=== PATIENT | female | born 1960 | race Caucasian/White ===

== ENCOUNTER 2017-12-10 11:35 | Inpatient (IN) | payer MEDICARE, OTHER ==
[2017-12-10] MEDS: SOD CHLORIDE 0.9% 500 ML IV (13:50)
[2017-12-10 14:03] LABS: ADD MAN DIFF? NO
[2017-12-10 14:06] LABS: BASOPHIL # 0.1 10^3/ul (0.0-0.1); EOSINOPHILS # 0.3 10^3/ul (0.0-0.5); EOSINOPHILS % 5.3 % (0.0-7.0); HEMATOCRIT 38.4 % (37.0-47.0); HEMOGLOBIN 12.9 g/dl (12.0-16.0); LYMPHOCYTES # 2.3 10^3/ul (0.8-2.9); LYMPHOCYTES % 37.5 % (15.0-51.0); MEAN CORPUSCULAR HEMOGLOBIN 30.8 pg (29.0-33.0); MEAN CORPUSCULAR HGB CONC 33.6 g/dl (32.0-37.0); MEAN CORPUSCULAR VOLUME 91.6 fl (82.0-101.0); MEAN PLATELET VOLUME 11.2 fl (7.4-10.4); MONOCYTE # 0.7 10^3/ul (0.3-0.9); MONOCYTES % 11.1 % (0.0-11.0); NEUTROPHIL # 2.7 10^3/ul (1.6-7.5); NEUTROPHILS % 44.8 % (39.0-77.0); PLATELET COUNT 438 10^3/UL (140-415); RED BLOOD COUNT 4.19 10^6/ul (4.20-5.40)
[2017-12-10 14:06] LABS: WHITE BLOOD COUNT 6.1 10^3/ul (4.8-10.8)
[2017-12-10 14:34] LABS: INR 0.88; PARTIAL THROMBOPLASTIN TIME 30.6 Sec (25.0-35.0); PT RATIO 0.9
[2017-12-10 15:21] LABS: ALANINE AMINOTRANSFERASE 27 IU/L (13-69); ALBUMIN 3.9 g/dl (3.3-4.9); ALBUMIN/GLOBULIN RATIO 1.11; ALKALINE PHOSPHATASE 129 IU/L (42-121); ANION GAP 14 (8-16); ASPARTATE AMINO TRANSFERASE 20 IU/L (15-46); BILIRUBIN,INDIRECT 0.1 mg/dl (0-1.1); BILIRUBIN,TOTAL 0.1 mg/dl (0.2-1.3); BLOOD UREA NITROGEN 29 mg/dl (7-20); CALCIUM 9.6 mg/dl (8.4-10.2); CARBON DIOXIDE 31 mmol/L (21-31); CHLORIDE 98 mmol/L (97-110); CREATININE 0.62 mg/dl (0.44-1.00); GLUCOSE 51 mg/dl (70-220); POTASSIUM 4.1 mmol/L (3.5-5.1); SODIUM 139 mmol/L (135-144); TOTAL PROTEIN 7.4 g/dl (6.1-8.1)
[2017-12-10] MEDS: CIPROFLOXACIN 400MG/D5W 200 ML IVPB (20:28)
[2017-12-10] MEDS: SOD CHLORIDE 0.9% 1,000 ML IV (20:28)
[2017-12-10] MEDS ORDERED: ONDANSETRON 4 MG INJ IV (20:30)
[2017-12-10] MEDS ORDERED: ACETAMINOPHEN 325 MG TAB PO (20:30)
[2017-12-10] MEDS ORDERED: ACETAMINOPHEN 500 MG TAB PO (23:30)
[2017-12-10] MEDS ORDERED: INSULIN DETEMIR 16 UNIT SC (23:30)
[2017-12-10] MEDS ORDERED: METOCLOPRAMIDE (1 MG/ML) 10 ML CUP GTB (23:30)
[2017-12-10] MEDS ORDERED: ACETAMINOPHEN 325 MG TAB GTB (23:30)
[2017-12-10] MEDS ORDERED: BISACODYL 10 MG SUPP PR (23:30)
[2017-12-10] MEDS ORDERED: NA PHOSPHATE/BIPHOS 66.6 ML ENEMA PR (23:30)
[2017-12-11] MEDS ORDERED: INSULIN DETEMIR [LEVEMIR] 3ML CART SC
[2017-12-11] MEDS: LEVETIRACETAM (100 MG/ML) 5ML CUP GTB ×3 (00:06→22:07)
[2017-12-11 06:38] LABS: ADD MAN DIFF? NO
[2017-12-11 06:41] LABS: WHITE BLOOD COUNT 6.3 10^3/ul (4.8-10.8)
[2017-12-11 06:41] LABS: BASOPHIL # 0.1 10^3/ul (0.0-0.1); BASOPHILS % 1.1 % (0.0-2.0); EOSINOPHILS # 0.7 10^3/ul (0.0-0.5); EOSINOPHILS % 11.2 % (0.0-7.0); HEMATOCRIT 37.7 % (37.0-47.0); HEMOGLOBIN 12.3 g/dl (12.0-16.0); LYMPHOCYTES # 1.9 10^3/ul (0.8-2.9); LYMPHOCYTES % 29.9 % (15.0-51.0); MEAN CORPUSCULAR HEMOGLOBIN 30.5 pg (29.0-33.0); MEAN CORPUSCULAR HGB CONC 32.6 g/dl (32.0-37.0); MEAN CORPUSCULAR VOLUME 93.5 fl (82.0-101.0); MEAN PLATELET VOLUME 10.4 fl (7.4-10.4); MONOCYTE # 0.5 10^3/ul (0.3-0.9); MONOCYTES % 7.2 % (0.0-11.0); NEUTROPHIL # 3.2 10^3/ul (1.6-7.5); NEUTROPHILS % 50.4 % (39.0-77.0); PLATELET COUNT 376 10^3/UL (140-415); RED BLOOD COUNT 4.03 10^6/ul (4.20-5.40); RED CELL DISTRIBUTION WIDTH 15.1 % (11.5-14.5)
[2017-12-11 07:20] LABS: ANION GAP 17 (8-16); BLOOD UREA NITROGEN 18 mg/dl (7-20); CALCIUM 9.6 mg/dl (8.4-10.2); CARBON DIOXIDE 27 mmol/L (21-31); CHLORIDE 101 mmol/L (97-110); CREATININE 0.58 mg/dl (0.44-1.00); GLUCOSE 104 mg/dl (70-220); POTASSIUM 3.9 mmol/L (3.5-5.1); SODIUM 141 mmol/L (135-144)
[2017-12-11] MEDS: INSULIN ASPART [NOVOLOG] 3 ML PEN SC ×4 (08:00→22:06)
[2017-12-11] MEDS: ASPIRIN (EC) 81 MG TAB PO (09:00)
[2017-12-11] MEDS: traMADol 50 MG TAB GTB ×2 (09:00→22:12)
[2017-12-11] MEDS: SOD CHLORIDE 0.45% 1,000 ML IV ×2 (12:52→19:30)
[2017-12-11] MEDS: MAGNESIUM OXIDE 400 MG TAB GTB ×3 (12:53→22:12)
[2017-12-11] MEDS: ZINC SULFATE 220 MG CAP GTB (12:53)
[2017-12-11] MEDS: METOPROLOL 25 MG TAB GTB ×2 (12:55→22:22)
[2017-12-11] MEDS: FERROUS SULFATE 60 MG/ML 5ML CUP GTB ×2 (12:56→22:06)
[2017-12-11] MEDS: MAGNESIUM HYDROXIDE 30ML CUP GTB (12:56)
[2017-12-11] MEDS: ASCORBIC ACID 500 MG TAB GTB ×2 (12:57→22:07)
[2017-12-11] MEDS: MULTIVITAMINS 30 ML CUP GTB (12:57)
[2017-12-11] MEDS: INSULIN DETEMIR [LEVEMIR] 3ML CART SC (18:12)
[2017-12-11] MEDS: DOCUSATE SODIUM 100 MG CAP PO (22:07)
[2017-12-12] MEDS: SOD CHLORIDE 0.45% 1,000 ML IV ×2 (04:24→15:30)
[2017-12-12] MEDS ORDERED: PENDING SANTYL ORDER FOR WOUND CARE XX (05:00)
[2017-12-12] MEDS: INFLUENZA VIRUS VACCINE 0.5 ML SYG IM* (09:00)
[2017-12-12] MEDS: FERROUS SULFATE 60 MG/ML 5ML CUP GTB ×2 (09:11→21:38)
[2017-12-12] MEDS: ZINC SULFATE 220 MG CAP GTB (09:11)
[2017-12-12] MEDS: LEVETIRACETAM (100 MG/ML) 5ML CUP GTB ×2 (09:11→21:39)
[2017-12-12] MEDS: ASCORBIC ACID 500 MG TAB GTB ×2 (09:11→21:39)
[2017-12-12] MEDS: MULTIVITAMINS 30 ML CUP GTB (09:11)
[2017-12-12] MEDS: MAGNESIUM OXIDE 400 MG TAB GTB ×3 (09:11→21:39)
[2017-12-12] MEDS: METOPROLOL 25 MG TAB GTB ×2 (09:12→21:43)
[2017-12-12] MEDS: traMADol 50 MG TAB GTB ×2 (09:14→21:40)
[2017-12-12] MEDS: INSULIN ASPART [NOVOLOG] 3 ML PEN SC ×4 (09:23→21:00)
[2017-12-12] MEDS: INSULIN DETEMIR [LEVEMIR] 3ML CART SC ×2 (09:24→21:55)
[2017-12-12] MEDS: ASPIRIN (EC) 81 MG TAB PO (09:25)
[2017-12-12] MEDS: CEFEPIME 1GM/50 ML (PMX) 50 ML IVPB (12:38)
[2017-12-12] MEDS: ERTAPENEM SODIUM 1 GM in SOD CHLORIDE 0.9% 100 ML IVPB (21:35)
[2017-12-12] MEDS: DOCUSATE SODIUM 100 MG CAP PO (21:39)
[2017-12-12] MEDS: MAGNESIUM HYDROXIDE 30ML CUP GTB (21:40)
[2017-12-13] MEDS: SOD CHLORIDE 0.45% 1,000 ML IV ×2 (04:43→11:30)
[2017-12-13] MEDS: INSULIN ASPART [NOVOLOG] 3 ML PEN SC ×4 (08:15→21:00)
[2017-12-13] MEDS: METOPROLOL 25 MG TAB GTB ×2 (09:00→21:55)
[2017-12-13] MEDS: ASPIRIN (EC) 81 MG TAB PO (09:32)
[2017-12-13] MEDS: traMADol 50 MG TAB GTB ×2 (09:32→21:51)
[2017-12-13] MEDS: ASCORBIC ACID 500 MG TAB GTB ×2 (09:32→21:48)
[2017-12-13] MEDS: FERROUS SULFATE 60 MG/ML 5ML CUP GTB ×2 (09:32→21:47)
[2017-12-13] MEDS: LEVETIRACETAM (100 MG/ML) 5ML CUP GTB ×2 (09:32→21:47)
[2017-12-13] MEDS: MAGNESIUM OXIDE 400 MG TAB GTB ×3 (09:32→21:47)
[2017-12-13] MEDS: ZINC SULFATE 220 MG CAP GTB (09:32)
[2017-12-13] MEDS: MULTIVITAMINS 30 ML CUP GTB (09:38)
[2017-12-13] MEDS: INSULIN DETEMIR [LEVEMIR] 3ML CART SC ×2 (09:42→22:07)
[2017-12-13] MEDS: MAGNESIUM HYDROXIDE 30ML CUP GTB (21:46)
[2017-12-13] MEDS: DOCUSATE SODIUM 100 MG CAP PO (21:47)
[2017-12-13] MEDS: MUPIROCIN 2% 15 GM CR TOP (21:52)
[2017-12-13] MEDS: ERTAPENEM SODIUM 1 GM in SOD CHLORIDE 0.9% 100 ML IVPB (21:52)
[2017-12-14] MEDS: SOD CHLORIDE 0.45% 1,000 ML IV ×2 (00:56→22:14)
[2017-12-14] MEDS: MULTIVITAMINS 30 ML CUP GTB (09:19)
[2017-12-14] MEDS: LEVETIRACETAM (100 MG/ML) 5ML CUP GTB ×2 (09:19→21:59)
[2017-12-14] MEDS: FERROUS SULFATE 60 MG/ML 5ML CUP GTB ×2 (09:19→22:00)
[2017-12-14] MEDS: METOPROLOL 25 MG TAB GTB ×2 (09:20→22:09)
[2017-12-14] MEDS: ZINC SULFATE 220 MG CAP GTB (09:20)
[2017-12-14] MEDS: MAGNESIUM OXIDE 400 MG TAB GTB ×3 (09:21→22:01)
[2017-12-14] MEDS: ASCORBIC ACID 500 MG TAB GTB ×2 (09:21→22:01)
[2017-12-14] MEDS: ASPIRIN (EC) 81 MG TAB PO (09:21)
[2017-12-14] MEDS: MUPIROCIN 2% 15 GM CR TOP ×2 (09:21→22:02)
[2017-12-14] MEDS: INSULIN ASPART [NOVOLOG] 3 ML PEN SC ×4 (09:27→22:13)
[2017-12-14] MEDS: INSULIN DETEMIR [LEVEMIR] 3ML CART SC ×2 (09:27→22:14)
[2017-12-14] MEDS: traMADol 50 MG TAB GTB ×2 (09:44→22:06)
[2017-12-14] MEDS ORDERED: COLLAGENASE 30 GM TUBE TOP (15:30)
[2017-12-14] MEDS: ERTAPENEM SODIUM 1 GM in SOD CHLORIDE 0.9% 100 ML IVPB (22:00)
[2017-12-14] MEDS: MAGNESIUM HYDROXIDE 30ML CUP GTB (22:01)
[2017-12-14] MEDS: DOCUSATE SODIUM 100 MG CAP PO (22:01)
[2017-12-14] MEDS: COLLAGENASE 30 GM TUBE TOP (22:06)
[2017-12-15] MEDS: ZINC SULFATE 220 MG CAP GTB (08:26)
[2017-12-15] MEDS: FERROUS SULFATE 60 MG/ML 5ML CUP GTB ×2 (08:26→21:26)
[2017-12-15] MEDS: ASPIRIN (EC) 81 MG TAB PO (08:27)
[2017-12-15] MEDS: MUPIROCIN 2% 15 GM CR TOP ×2 (08:27→21:27)
[2017-12-15] MEDS: METOPROLOL 25 MG TAB GTB ×2 (08:27→21:30)
[2017-12-15] MEDS: MULTIVITAMINS 30 ML CUP GTB (08:27)
[2017-12-15] MEDS: ASCORBIC ACID 500 MG TAB GTB ×2 (08:27→21:27)
[2017-12-15] MEDS: MAGNESIUM OXIDE 400 MG TAB GTB ×3 (08:27→21:27)
[2017-12-15] MEDS: COLLAGENASE 30 GM TUBE TOP (08:28)
[2017-12-15] MEDS: INSULIN DETEMIR [LEVEMIR] 3ML CART SC ×2 (08:31→21:26)
[2017-12-15] MEDS: INSULIN ASPART [NOVOLOG] 3 ML PEN SC ×4 (08:31→21:00)
[2017-12-15] MEDS: traMADol 50 MG TAB GTB ×2 (08:34→21:31)
[2017-12-15] MEDS: LEVETIRACETAM (100 MG/ML) 5ML CUP GTB ×2 (08:35→21:26)
[2017-12-15 10:53] LABS: ADD MAN DIFF? NO
[2017-12-15 10:59] LABS: BASOPHILS % 0.4 % (0.0-2.0); EOSINOPHILS # 0.5 10^3/ul (0.0-0.5); EOSINOPHILS % 6.4 % (0.0-7.0); HEMATOCRIT 37.5 % (37.0-47.0); HEMOGLOBIN 12.4 g/dl (12.0-16.0); LYMPHOCYTES # 2.1 10^3/ul (0.8-2.9); LYMPHOCYTES % 24.9 % (15.0-51.0); MEAN CORPUSCULAR HEMOGLOBIN 30.6 pg (29.0-33.0); MEAN CORPUSCULAR HGB CONC 33.1 g/dl (32.0-37.0); MEAN CORPUSCULAR VOLUME 92.6 fl (82.0-101.0); MEAN PLATELET VOLUME 10.5 fl (7.4-10.4); MONOCYTE # 0.6 10^3/ul (0.3-0.9); MONOCYTES % 7.3 % (0.0-11.0); NEUTROPHILS % 60.3 % (39.0-77.0); PLATELET COUNT 359 10^3/UL (140-415); RED BLOOD COUNT 4.05 10^6/ul (4.20-5.40); RED CELL DISTRIBUTION WIDTH 14.6 % (11.5-14.5)
[2017-12-15 10:59] LABS: WHITE BLOOD COUNT 8.3 10^3/ul (4.8-10.8)
[2017-12-15 11:18] LABS: ANION GAP 16 (8-16)
[2017-12-15 11:19] LABS: BLOOD UREA NITROGEN 19 mg/dl (7-20); CALCIUM 9.1 mg/dl (8.4-10.2); CARBON DIOXIDE 28 mmol/L (21-31); CHLORIDE 99 mmol/L (97-110); CREATININE 0.56 mg/dl (0.44-1.00); GLUCOSE 144 mg/dl (70-220); POTASSIUM 4.6 mmol/L (3.5-5.1); SODIUM 138 mmol/L (135-144)
[2017-12-15] MEDS: SOD CHLORIDE 0.45% 1,000 ML IV (18:08)
[2017-12-15] MEDS: ERTAPENEM SODIUM 1 GM in SOD CHLORIDE 0.9% 100 ML IVPB (21:25)
[2017-12-15] MEDS: MAGNESIUM HYDROXIDE 30ML CUP GTB (21:26)
[2017-12-15] MEDS: DOCUSATE SODIUM 100 MG CAP PO (21:27)
[2017-12-16 07:07] LABS: ANION GAP 13 (8-16); BLOOD UREA NITROGEN 21 mg/dl (7-20); CALCIUM 9.5 mg/dl (8.4-10.2); CARBON DIOXIDE 30 mmol/L (21-31); CHLORIDE 99 mmol/L (97-110); CREATININE 0.61 mg/dl (0.44-1.00); GLUCOSE 183 mg/dl (70-220); POTASSIUM 4.2 mmol/L (3.5-5.1); SODIUM 138 mmol/L (135-144)
[2017-12-16] MEDS: INSULIN DETEMIR [LEVEMIR] 3ML CART SC ×2 (08:26→21:45)
[2017-12-16] MEDS: INSULIN ASPART [NOVOLOG] 3 ML PEN SC ×4 (08:27→21:00)
[2017-12-16] MEDS: ZINC SULFATE 220 MG CAP GTB (09:19)
[2017-12-16] MEDS: METOPROLOL 25 MG TAB GTB ×2 (09:19→21:43)
[2017-12-16] MEDS: ASCORBIC ACID 500 MG TAB GTB ×2 (09:19→21:42)
[2017-12-16] MEDS: MAGNESIUM OXIDE 400 MG TAB GTB ×3 (09:19→21:42)
[2017-12-16] MEDS: ASPIRIN (EC) 81 MG TAB PO (09:19)
[2017-12-16] MEDS: traMADol 50 MG TAB GTB ×2 (09:19→21:42)
[2017-12-16] MEDS: MULTIVITAMINS 30 ML CUP GTB (09:20)
[2017-12-16] MEDS: FERROUS SULFATE 60 MG/ML 5ML CUP GTB ×2 (09:20→21:40)
[2017-12-16] MEDS: MUPIROCIN 2% 15 GM CR TOP ×2 (09:20→21:43)
[2017-12-16] MEDS: LEVETIRACETAM (100 MG/ML) 5ML CUP GTB ×2 (09:20→21:40)
[2017-12-16] MEDS: COLLAGENASE 30 GM TUBE TOP (09:21)
[2017-12-16] MEDS: SOD CHLORIDE 0.45% 1,000 ML IV (17:50)
[2017-12-16] MEDS: ERTAPENEM SODIUM 1 GM in SOD CHLORIDE 0.9% 100 ML IVPB (19:50)
[2017-12-16] MEDS: MAGNESIUM HYDROXIDE 30ML CUP GTB (21:40)
[2017-12-16] MEDS: DOCUSATE SODIUM 100 MG CAP PO (21:42)
[2017-12-17] MEDS: LEVETIRACETAM (100 MG/ML) 5ML CUP GTB ×2 (09:13→21:37)
[2017-12-17] MEDS: ASPIRIN (EC) 81 MG TAB PO (09:14)
[2017-12-17] MEDS: ASCORBIC ACID 500 MG TAB GTB ×2 (09:14→21:37)
[2017-12-17] MEDS: MAGNESIUM OXIDE 400 MG TAB GTB ×3 (09:14→21:47)
[2017-12-17] MEDS: ZINC SULFATE 220 MG CAP GTB (09:14)
[2017-12-17] MEDS: MULTIVITAMINS 30 ML CUP GTB (09:14)
[2017-12-17] MEDS: FERROUS SULFATE 60 MG/ML 5ML CUP GTB ×2 (09:14→21:37)
[2017-12-17] MEDS: METOPROLOL 25 MG TAB GTB ×2 (09:16→21:38)
[2017-12-17] MEDS: MUPIROCIN 2% 15 GM CR TOP ×2 (09:17→21:39)
[2017-12-17] MEDS: COLLAGENASE 30 GM TUBE TOP (09:17)
[2017-12-17] MEDS: INSULIN ASPART [NOVOLOG] 3 ML PEN SC ×5 (09:24→21:00)
[2017-12-17] MEDS: INSULIN DETEMIR [LEVEMIR] 3ML CART SC ×2 (09:24→21:42)
[2017-12-17] MEDS: traMADol 50 MG TAB GTB ×2 (09:36→21:38)
[2017-12-17] MEDS: SOD CHLORIDE 0.45% 1,000 ML IV ×2 (12:02→15:03)
[2017-12-17] MEDS ORDERED: GLUCOSE GEL 15 GRAM TUBE BUCCAL (16:00)
[2017-12-17] MEDS ORDERED: GLUCOSE GEL 15 GRAM TUBE PO ×2 (16:00)
[2017-12-17] MEDS ORDERED: GLUCAGON 1 MG INJ IM (16:00)
[2017-12-17] MEDS: MAGNESIUM HYDROXIDE 30ML CUP GTB (21:37)
[2017-12-17] MEDS: DOCUSATE SODIUM 100 MG CAP PO (21:37)
[2017-12-17] MEDS: ERTAPENEM SODIUM 1 GM in SOD CHLORIDE 0.9% 100 ML IVPB (21:44)
[2017-12-18] MEDS: SOD CHLORIDE 0.45% 1,000 ML IV (06:13)
[2017-12-18] MEDS: INSULIN ASPART [NOVOLOG] 3 ML PEN SC ×7 (06:13→21:00)
[2017-12-18] MEDS: INSULIN DETEMIR [LEVEMIR] 3ML CART SC ×2 (08:13→21:13)
[2017-12-18] MEDS: METOPROLOL 25 MG TAB GTB ×2 (09:05→20:59)
[2017-12-18] MEDS: LEVETIRACETAM (100 MG/ML) 5ML CUP GTB ×2 (09:06→20:58)
[2017-12-18] MEDS: FERROUS SULFATE 60 MG/ML 5ML CUP GTB ×2 (09:06→20:58)
[2017-12-18] MEDS: MULTIVITAMINS 30 ML CUP GTB (09:07)
[2017-12-18] MEDS: ASPIRIN (EC) 81 MG TAB PO (09:07)
[2017-12-18] MEDS: MAGNESIUM OXIDE 400 MG TAB GTB ×3 (09:07→20:59)
[2017-12-18] MEDS: traMADol 50 MG TAB GTB ×2 (09:07→21:00)
[2017-12-18] MEDS: ASCORBIC ACID 500 MG TAB GTB ×2 (09:07→20:59)
[2017-12-18] MEDS: ZINC SULFATE 220 MG CAP GTB (09:07)
[2017-12-18] MEDS: MUPIROCIN 2% 15 GM CR TOP ×2 (09:08→21:14)
[2017-12-18] MEDS: COLLAGENASE 30 GM TUBE TOP (12:04)
[2017-12-18] MEDS: DEXTROSE 50% 50 ML SYRINGE IV (17:53)
[2017-12-18] MEDS: ERTAPENEM SODIUM 1 GM in SOD CHLORIDE 0.9% 100 ML IVPB (20:58)
[2017-12-18] MEDS: MAGNESIUM HYDROXIDE 30ML CUP GTB (20:58)
[2017-12-18] MEDS: DOCUSATE SODIUM 10 MG/ML (10ML CUP) PO (21:09)
[2017-12-19] MEDS: SOD CHLORIDE 0.45% 1,000 ML IV ×3 (02:49→23:49)
[2017-12-19] MEDS: INSULIN ASPART [NOVOLOG] 3 ML PEN SC ×8 (06:00→23:48)
[2017-12-19] MEDS: INSULIN DETEMIR [LEVEMIR] 3ML CART SC ×2 (06:00→18:06)
[2017-12-19] MEDS: DEXTROSE 50% 50 ML SYRINGE IV (06:33)
[2017-12-19] MEDS: ASCORBIC ACID 500 MG TAB GTB ×2 (09:15→20:17)
[2017-12-19] MEDS: LEVETIRACETAM (100 MG/ML) 5ML CUP GTB ×2 (09:15→20:17)
[2017-12-19] MEDS: traMADol 50 MG TAB GTB ×2 (09:15→20:17)
[2017-12-19] MEDS: MULTIVITAMINS 30 ML CUP GTB (09:15)
[2017-12-19] MEDS: MAGNESIUM OXIDE 400 MG TAB GTB ×3 (09:15→20:17)
[2017-12-19] MEDS: ASPIRIN (EC) 81 MG TAB PO (09:15)
[2017-12-19] MEDS: METOPROLOL 25 MG TAB GTB ×2 (09:15→20:17)
[2017-12-19] MEDS: ZINC SULFATE 220 MG CAP GTB (09:15)
[2017-12-19] MEDS: MUPIROCIN 2% 15 GM CR TOP ×2 (09:16→20:19)
[2017-12-19] MEDS: COLLAGENASE 30 GM TUBE TOP (09:16)
[2017-12-19] MEDS: FERROUS SULFATE 60 MG/ML 5ML CUP GTB ×2 (09:16→20:17)
[2017-12-19] MEDS: ERTAPENEM SODIUM 1 GM in SOD CHLORIDE 0.9% 100 ML IVPB (19:43)
[2017-12-19] MEDS: DOCUSATE SODIUM 10 MG/ML (10ML CUP) PO (20:16)
[2017-12-19] MEDS: MAGNESIUM HYDROXIDE 30ML CUP GTB (20:17)
[2017-12-20] MEDS: SOD CHLORIDE 0.45% 1,000 ML IV ×2 (03:30→21:06)
[2017-12-20] MEDS: INSULIN ASPART [NOVOLOG] 3 ML PEN SC ×6 (05:34→18:22)
[2017-12-20] MEDS: INSULIN DETEMIR [LEVEMIR] 3ML CART SC ×2 (05:39→18:22)
[2017-12-20] MEDS: METOPROLOL 25 MG TAB GTB ×2 (09:00→21:01)
[2017-12-20] MEDS: FERROUS SULFATE 60 MG/ML 5ML CUP GTB ×2 (09:28→21:00)
[2017-12-20] MEDS: MULTIVITAMINS 30 ML CUP GTB (09:28)
[2017-12-20] MEDS: MAGNESIUM OXIDE 400 MG TAB GTB ×3 (09:29→21:01)
[2017-12-20] MEDS: MUPIROCIN 2% 15 GM CR TOP ×2 (09:29→21:02)
[2017-12-20] MEDS: LEVETIRACETAM (100 MG/ML) 5ML CUP GTB ×2 (09:29→21:00)
[2017-12-20] MEDS: ZINC SULFATE 220 MG CAP GTB (09:29)
[2017-12-20] MEDS: ASPIRIN (EC) 81 MG TAB PO (09:29)
[2017-12-20] MEDS: COLLAGENASE 30 GM TUBE TOP (09:29)
[2017-12-20] MEDS: ASCORBIC ACID 500 MG TAB GTB ×2 (09:29→21:01)
[2017-12-20] MEDS: traMADol 50 MG TAB GTB ×2 (09:31→21:01)
[2017-12-20] MEDS: MAGNESIUM HYDROXIDE 30ML CUP GTB (21:00)
[2017-12-20] MEDS: DOCUSATE SODIUM 10 MG/ML (10ML CUP) PO (21:00)
[2017-12-21] MEDS: INSULIN ASPART [NOVOLOG] 3 ML PEN SC ×7 (05:59→18:14)
[2017-12-21] MEDS: INSULIN DETEMIR [LEVEMIR] 3ML CART SC ×2 (06:00→18:14)
[2017-12-21] MEDS: METOPROLOL 25 MG TAB GTB ×2 (09:00→20:42)
[2017-12-21] MEDS: COLLAGENASE 30 GM TUBE TOP (10:17)
[2017-12-21] MEDS: ASCORBIC ACID 500 MG TAB GTB ×2 (10:18→20:42)
[2017-12-21] MEDS: ASPIRIN (EC) 81 MG TAB PO (10:18)
[2017-12-21] MEDS: ZINC SULFATE 220 MG CAP GTB (10:18)
[2017-12-21] MEDS: MULTIVITAMINS 30 ML CUP GTB (10:18)
[2017-12-21] MEDS: FERROUS SULFATE 60 MG/ML 5ML CUP GTB ×2 (10:18→20:42)
[2017-12-21] MEDS: LEVETIRACETAM (100 MG/ML) 5ML CUP GTB ×2 (10:18→20:42)
[2017-12-21] MEDS: MAGNESIUM OXIDE 400 MG TAB GTB ×3 (10:18→20:42)
[2017-12-21] MEDS: traMADol 50 MG TAB GTB ×2 (10:18→20:49)
[2017-12-21] MEDS: MUPIROCIN 2% 15 GM CR TOP ×2 (10:21→20:47)
[2017-12-21] MEDS: SOD CHLORIDE 0.45% 1,000 ML IV (18:21)
[2017-12-21] MEDS: DOCUSATE SODIUM 10 MG/ML (10ML CUP) PO (20:42)
[2017-12-21] MEDS: MAGNESIUM HYDROXIDE 30ML CUP GTB (20:42)
[2017-12-22] MEDS: DEXTROSE 50% 50 ML SYRINGE IV (05:42)
[2017-12-22] MEDS: INSULIN DETEMIR [LEVEMIR] 3ML CART SC (06:00)
[2017-12-22] MEDS: INSULIN ASPART [NOVOLOG] 3 ML PEN SC ×5 (06:00→12:44)
[2017-12-22 06:48] LABS: GLUCOSE 243 mg/dl (70-220)
[2017-12-22] MEDS: COLLAGENASE 30 GM TUBE TOP (09:00)
[2017-12-22] MEDS: MUPIROCIN 2% 15 GM CR TOP (09:00)
[2017-12-22] MEDS: MULTIVITAMINS 30 ML CUP GTB (10:24)
[2017-12-22] MEDS: ASCORBIC ACID 500 MG TAB GTB (10:25)
[2017-12-22] MEDS: METOPROLOL 25 MG TAB GTB (10:25)
[2017-12-22] MEDS: ZINC SULFATE 220 MG CAP GTB (10:25)
[2017-12-22] MEDS: ASPIRIN (EC) 81 MG TAB PO (10:25)
[2017-12-22] MEDS: FERROUS SULFATE 60 MG/ML 5ML CUP GTB (10:27)
[2017-12-22] MEDS: LEVETIRACETAM (100 MG/ML) 5ML CUP GTB (10:27)
[2017-12-22] MEDS: MAGNESIUM OXIDE 400 MG TAB GTB ×2 (10:32→13:34)
[2017-12-22] MEDS: traMADol 50 MG TAB GTB (10:32)
[2017-12-22] MEDS ORDERED: INSULIN DETEMIR [LEVEMIR] 3ML CART SC (18:00)
== END 2017-12-22 15:55 | DRG 689 ==
LOC: E/R 11:35 → MS2 20:19
PROVIDERS: Internal Medicine
DX: N39.0 Urinary tract infection, site not specified (principal); R53.2 Functional quadriplegia; N17.9 Acute kidney failure, unspecified; E11.649 Type 2 diabetes mellitus with hypoglycemia without coma; N93.9 Abnormal uterine and vaginal bleeding, unspecified; R13.10 Dysphagia, unspecified; G93.89 Other specified disorders of brain; Z93.1 Gastrostomy status; B96.20 Unspecified Escherichia coli [E. coli] as the cause of diseases classified elsewhere; F20.9 Schizophrenia, unspecified; F31.9 Bipolar disorder, unspecified; Z22.322 Carrier or suspected carrier of Methicillin resistant Staphylococcus aureus; D56.9 Thalassemia, unspecified; E78.5 Hyperlipidemia, unspecified; G40.909 Epilepsy, unspecified, not intractable, without status epilepticus; I25.10 Atherosclerotic heart disease of native coronary artery without angina pectoris; I10 Essential (primary) hypertension; Z16.12 Extended spectrum beta lactamase (ESBL) resistance; Z96.642 Presence of left artificial hip joint; Z91.19 Patient's noncompliance with other medical treatment and regimen; Z79.4 Long term (current) use of insulin
CPT/HCPCS: 36415; 71045; 74176; 76856; 80048; 80053; 82947; 82962; 85025; 85610; 85730; 86900; 86901; 87081; 87086; 87400; 90686; 96374; 99285-25

== ENCOUNTER 2017-12-30 09:46 | Inpatient (IN) | payer MEDICARE, OTHER ==
[2017-12-30] MEDS ORDERED: ONDANSETRON 4 MG INJ IV (10:00)
[2017-12-30] MEDS ORDERED: ACETAMINOPHEN 325 MG TAB PO (10:00)
[2017-12-30 10:42] LABS: WHITE BLOOD COUNT 6.9 10^3/ul (4.8-10.8)
[2017-12-30 10:42] LABS: ABNORMAL IP MESSAGE 1; HEMATOCRIT 48.4 % (37.0-47.0); HEMOGLOBIN 16.4 g/dl (12.0-16.0); MEAN CORPUSCULAR HEMOGLOBIN 30.5 pg (29.0-33.0); MEAN CORPUSCULAR HGB CONC 33.9 g/dl (32.0-37.0); MEAN CORPUSCULAR VOLUME 90.1 fl (82.0-101.0); MEAN PLATELET VOLUME 11.8 fl (7.4-10.4); PLATELET COUNT 290 10^3/UL (140-415); RED BLOOD COUNT 5.37 10^6/ul (4.20-5.40); RED CELL DISTRIBUTION WIDTH 14.3 % (11.5-14.5)
[2017-12-30 10:45] LABS: ADD MAN DIFF? YES; POSITIVE DIFF @See below
[2017-12-30 11:02] LABS: INR 1.09; PARTIAL THROMBOPLASTIN TIME 30.3 Sec (25.0-35.0); PROTIME 14.3 Sec (11.9-14.9); PT RATIO 1.1
[2017-12-30 11:23] LABS: LACTIC ACID 11.7 mmol/L (0.5-2.0)
[2017-12-30 11:34] LABS: ALANINE AMINOTRANSFERASE 19 IU/L (13-69); ALBUMIN 4.5 g/dl (3.3-4.9); ALBUMIN/GLOBULIN RATIO 1.07; ALKALINE PHOSPHATASE 169 IU/L (42-121); ANION GAP 31 (8-16); ASPARTATE AMINO TRANSFERASE 37 IU/L (15-46); BLOOD UREA NITROGEN 63 mg/dl (7-20); CALCIUM 11.5 mg/dl (8.4-10.2); CARBON DIOXIDE 15 mmol/L (21-31); CHLORIDE 99 mmol/L (97-110); CREATININE 1.65 mg/dl (0.44-1.00); GLUCOSE 305 mg/dl (70-220); POTASSIUM 3.8 mmol/L (3.5-5.1); SODIUM 141 mmol/L (135-144); TOTAL PROTEIN 8.7 g/dl (6.1-8.1)
[2017-12-30 11:45] LABS: TROPONIN-I 0.035 ng/ml (0.00-0.12)
[2017-12-30] MEDS: SOD CHLORIDE 0.9% 1,000 ML IV ×5 (11:56→20:19)
[2017-12-30] MEDS: CEFEPIME 2GM/50 ML (PMX) 50 ML IVPB (11:57)
[2017-12-30] MEDS: VANCOMYCIN 1 GM (PMX) 250 ML IVPB (11:58)
[2017-12-30 13:13] LABS: LACTIC ACID 13.3 mmol/L (0.5-2.0)
[2017-12-30 13:23] LABS: ANISOCYTOSIS 1+ (0-0); BAND NEUTROPHILS #M 2.7 10^3/ul (0.0-0.6); BAND NEUTROPHILS % (M) 40 % (0-4); GIANT THROMBO% (M) 2 % (0-0); LYMPHOCYTES #M 0.4 10^3/ul (0.8-2.9); LYMPHOCYTES % (M) 7 % (15-51); METAMYELOCYTES #M 0.2 10^3/ul (0.0-0.0); METAMYELOCYTES %M 3 % (0-0); MICROCYTOSIS 1+ (0-0); MONOCYTE #M 0.1 10^3/ul (0.3-0.9); MONOCYTES % (M) 2 % (0-11); PLATELET ESTIMATE NORMAL; POLYCHROMASIA 2+ (0-0); ROULEAU 1+ (0-0); SEG NEUT #M 3.5 10^3/ul (1.6-7.5); SEGMENTED NEUTROPHILS (M) % 48 % (39-77)
[2017-12-30 13:52] LABS: LACTIC ACID 11.8 mmol/L (0.5-2.0)
[2017-12-30] MEDS ORDERED: ACETAMINOPHEN 650MG/20.3ML CUP (14:56)
[2017-12-30] MEDS: ACETAMINOPHEN 650 MG SUPP PR (15:28)
[2017-12-30] MEDS: LIDOCAINE 1% (MPF) 5 ML VIAL SC (15:35)
[2017-12-30] MEDS ORDERED: NORepinephrine 8MG/250 ML (PMX 250 ML (16:11)
[2017-12-30 17:03] LABS: UR BACTERIA MANY /HPF (NONE SEEN); UR RBC > 182 /HPF (0-5); UR WBC > 182 /HPF (0-5)
[2017-12-30 17:06] LABS: ADD UMIC YES; UR ASCORBIC ACID 20 mg/dL (NEGATIVE); UR BILIRUBIN (Dip) NEGATIVE (NEGATIVE); UR BLOOD (Dip) 3+ mg/dL (NEGATIVE); UR CLARITY SLIGHTLY CLOUDY (CLEAR); UR COLOR RED (YELLOW); UR GLUCOSE (Dip) 2+ mg/dL (NEGATIVE); UR KETONES (Dip) NEGATIVE (NEGATIVE); UR LEUKOCYTE ESTERASE (Dip) 2+ Leu/ul (NEGATIVE); UR NITRITE (Dip) NEGATIVE (NEGATIVE); UR SPECIFIC GRAVITY (Dip) 1.017 (1.003-1.030); UR TOTAL PROTEIN (Dip) 3+ mg/dl (NEGATIVE); UR UROBILINOGEN (Dip) NEGATIVE (NEGATIVE)
[2017-12-30] MEDS: NORepinephrine 8MG/250 ML (PMX 250 ML IV (18:01)
[2017-12-30] MEDS ORDERED: NORepinephrine 8MG/250 ML (PMX 250 ML IV (20:00)
[2017-12-30] MEDS ORDERED: ASCORBIC ACID 500 MG TAB GTB (21:00)
[2017-12-30] MEDS: FERROUS SULFATE 60 MG/ML 5ML CUP GTB (21:14)
[2017-12-30] MEDS: traMADol 50 MG TAB GTB (21:14)
[2017-12-30] MEDS: ASCORBIC ACID 500 MG TAB GTB (21:14)
[2017-12-30] MEDS: MAGNESIUM OXIDE 400 MG TAB GTB (21:14)
[2017-12-30] MEDS: LEVETIRACETAM (100 MG/ML) 5ML CUP GTB (21:14)
[2017-12-30] MEDS: MEROPENEM 1 GM/50ML(PMX) 50 ML IVPB (21:17)
[2017-12-31] MEDS: ACETAMINOPHEN 650MG/20.3ML CUP GTB (03:41)
[2017-12-31] MEDS: SOD CHLORIDE 0.9% 1,000 ML IV ×3 (04:06→17:30)
[2017-12-31 05:59] LABS: ADD MAN DIFF? NO
[2017-12-31 06:08] LABS: WHITE BLOOD COUNT 13.8 10^3/ul (4.8-10.8)
[2017-12-31 06:08] LABS: ABNORMAL IP MESSAGE 1; BASOPHIL # 0.1 10^3/ul (0.0-0.1); BASOPHILS % 0.7 % (0.0-2.0); EOSINOPHILS # 0.2 10^3/ul (0.0-0.5); EOSINOPHILS % 1.4 % (0.0-7.0); HEMATOCRIT 31.9 % (37.0-47.0); HEMOGLOBIN 10.6 g/dl (12.0-16.0); LYMPHOCYTES # 0.7 10^3/ul (0.8-2.9); LYMPHOCYTES % 4.9 % (15.0-51.0); MEAN CORPUSCULAR HEMOGLOBIN 30.9 pg (29.0-33.0); MEAN CORPUSCULAR HGB CONC 33.2 g/dl (32.0-37.0); MEAN PLATELET VOLUME 11.3 fl (7.4-10.4); MONOCYTE # 0.7 10^3/ul (0.3-0.9); MONOCYTES % 5.1 % (0.0-11.0); NEUTROPHILS % 87.1 % (39.0-77.0); PLATELET COUNT 236 10^3/UL (140-415); RED BLOOD COUNT 3.43 10^6/ul (4.20-5.40); RED CELL DISTRIBUTION WIDTH 14.7 % (11.5-14.5)
[2017-12-31 06:23] LABS: POSITIVE DIFF @See below
[2017-12-31 06:28] LABS: ALANINE AMINOTRANSFERASE 25 IU/L (13-69); ALBUMIN 2.7 g/dl (3.3-4.9); ALBUMIN/GLOBULIN RATIO 0.87; ALKALINE PHOSPHATASE 102 IU/L (42-121); ANION GAP 13 (8-16); ASPARTATE AMINO TRANSFERASE 32 IU/L (15-46); BLOOD UREA NITROGEN 31 mg/dl (7-20); CALCIUM 8.6 mg/dl (8.4-10.2); CARBON DIOXIDE 23 mmol/L (21-31); CHLORIDE 116 mmol/L (97-110); CREATININE 0.72 mg/dl (0.44-1.00); GLUCOSE 71 mg/dl (70-220); POTASSIUM 3.2 mmol/L (3.5-5.1); SODIUM 149 mmol/L (135-144); TOTAL PROTEIN 5.8 g/dl (6.1-8.1)
[2017-12-31] MEDS ORDERED: [UNRECOGNIZED DRUG - REMARK] XX (07:30)
[2017-12-31] MEDS: LEVETIRACETAM (100 MG/ML) 5ML CUP GTB (09:00)
[2017-12-31] MEDS: traMADol 50 MG TAB GTB (09:00)
[2017-12-31] MEDS: MAGNESIUM OXIDE 400 MG TAB GTB ×2 (10:21→13:00)
[2017-12-31] MEDS: FERROUS SULFATE 60 MG/ML 5ML CUP GTB (10:21)
[2017-12-31] MEDS: MEROPENEM 1 GM/50ML(PMX) 50 ML IVPB (10:21)
[2017-12-31] MEDS: MULTIVITAMINS/MINERALS TAB GTB (10:21)
[2017-12-31] MEDS: ZINC SULFATE 220 MG CAP GTB (10:21)
[2017-12-31] MEDS: ASCORBIC ACID 500 MG TAB GTB (10:21)
[2017-12-31] MEDS: POTASSIUM CHLORIDE 20 MEQ POWDER FOR ORAL SOLN GTB (18:12)
[2017-12-31] MEDS: COLLAGENASE 30 GM TUBE TOP (22:00)
[2018-01-01] MEDS: BALSAM PERU/CASTOR OIL 60 GM TUBE TOP ×4 (00:55→21:24)
[2018-01-01] MEDS: FERROUS SULFATE 60 MG/ML 5ML CUP GTB ×3 (00:57→21:22)
[2018-01-01] MEDS: traMADol 50 MG TAB GTB ×3 (00:58→21:23)
[2018-01-01] MEDS: ASCORBIC ACID 500 MG TAB GTB ×3 (00:58→21:23)
[2018-01-01] MEDS: L ACIDOPHIL/B LACTIS/B LONGUM CAPSULE PO ×3 (00:59→21:23)
[2018-01-01] MEDS: SOD CHLORIDE 0.9% 1,000 ML IV ×8 (00:59→17:21)
[2018-01-01] MEDS: MEROPENEM 1 GM/50ML(PMX) 50 ML IVPB ×3 (01:55→21:27)
[2018-01-01] MEDS: LEVETIRACETAM (100 MG/ML) 5ML CUP GTB ×3 (01:55→21:22)
[2018-01-01] MEDS: MAGNESIUM OXIDE 400 MG TAB GTB ×4 (01:56→21:23)
[2018-01-01] MEDS ORDERED: PENDING SANTYL ORDER FOR WOUND CARE XX (06:00)
[2018-01-01] MEDS: ZINC SULFATE 220 MG CAP GTB (08:32)
[2018-01-01] MEDS: MULTIVITAMINS/MINERALS TAB GTB (08:32)
[2018-01-01] MEDS: ACETAMINOPHEN 650MG/20.3ML CUP GTB (08:38)
[2018-01-01 11:58] LABS: ABNORMAL IP MESSAGE 1; HEMATOCRIT 29.8 % (37.0-47.0); HEMOGLOBIN 9.6 g/dl (12.0-16.0); MEAN CORPUSCULAR HEMOGLOBIN 30.9 pg (29.0-33.0); MEAN CORPUSCULAR HGB CONC 32.2 g/dl (32.0-37.0); MEAN CORPUSCULAR VOLUME 95.8 fl (82.0-101.0); MEAN PLATELET VOLUME 11.7 fl (7.4-10.4); PLATELET COUNT 194 10^3/UL (140-415); RED BLOOD COUNT 3.11 10^6/ul (4.20-5.40); RED CELL DISTRIBUTION WIDTH 15.3 % (11.5-14.5)
[2018-01-01 12:02] LABS: ADD MAN DIFF? YES; POSITIVE DIFF @See below
[2018-01-01 12:15] LABS: ANION GAP 16 (8-16); BLOOD UREA NITROGEN 15 mg/dl (7-20); CALCIUM 8.6 mg/dl (8.4-10.2); CARBON DIOXIDE 20 mmol/L (21-31); CHLORIDE 115 mmol/L (97-110); GLUCOSE 243 mg/dl (70-220); POTASSIUM 3.6 mmol/L (3.5-5.1); SODIUM 147 mmol/L (135-144)
[2018-01-01 13:08] LABS: ANISOCYTOSIS 1+ (0-0); BAND NEUTROPHILS #M 3.9 10^3/ul (0.0-0.6); BAND NEUTROPHILS % (M) 26 % (0-4); EOSINOPHILS % (M) 2 % (0-7); LYMPHOCYTES #M 0.9 10^3/ul (0.8-2.9); LYMPHOCYTES % (M) 6 % (15-51); MICROCYTOSIS 1+ (0-0); MONOCYTE #M 0.6 10^3/ul (0.3-0.9); MONOCYTES % (M) 4 % (0-11); PLATELET ESTIMATE NORMAL; POLYCHROMASIA 1+ (0-0); SEG NEUT #M 9.9 10^3/ul (1.6-7.5); SEGMENTED NEUTROPHILS (M) % 62 % (39-77)
[2018-01-02] MEDS: SOD CHLORIDE 0.9% 1,000 ML IV ×6 (00:54→19:52)
[2018-01-02] MEDS: FUROSEMIDE 20 MG INJ IV (05:31)
[2018-01-02] MEDS: LEVALBUTEROL (NEB) 0.63 MG/3 ML AMP HHN (05:38)
[2018-01-02] MEDS: MEROPENEM 1 GM/50ML(PMX) 50 ML IVPB (08:46)
[2018-01-02] MEDS: ASCORBIC ACID 500 MG TAB GTB ×2 (08:47→20:17)
[2018-01-02] MEDS: ZINC SULFATE 220 MG CAP GTB (08:47)
[2018-01-02] MEDS: L ACIDOPHIL/B LACTIS/B LONGUM CAPSULE PO ×2 (08:47→20:17)
[2018-01-02] MEDS: MULTIVITAMINS/MINERALS TAB GTB (08:47)
[2018-01-02] MEDS: MAGNESIUM OXIDE 400 MG TAB GTB ×3 (08:47→20:17)
[2018-01-02] MEDS: LEVETIRACETAM (100 MG/ML) 5ML CUP GTB ×2 (08:47→20:17)
[2018-01-02] MEDS: traMADol 50 MG TAB GTB ×2 (08:47→20:18)
[2018-01-02] MEDS: FERROUS SULFATE 60 MG/ML 5ML CUP GTB ×2 (08:47→20:18)
[2018-01-02] MEDS: BALSAM PERU/CASTOR OIL 60 GM TUBE TOP ×2 (08:48→20:19)
[2018-01-02 09:15] LABS: WHITE BLOOD COUNT 23.3 10^3/ul (4.8-10.8)
[2018-01-02 09:15] LABS: ABNORMAL IP MESSAGE 1; HEMATOCRIT 36.5 % (37.0-47.0); HEMOGLOBIN 10.7 g/dl (12.0-16.0); MEAN CORPUSCULAR HEMOGLOBIN 30.3 pg (29.0-33.0); MEAN CORPUSCULAR HGB CONC 29.3 g/dl (32.0-37.0); MEAN CORPUSCULAR VOLUME 103.4 fl (82.0-101.0); MEAN PLATELET VOLUME 11.8 fl (7.4-10.4); PLATELET COUNT 260 10^3/UL (140-415); RED BLOOD COUNT 3.53 10^6/ul (4.20-5.40); RED CELL DISTRIBUTION WIDTH 15.8 % (11.5-14.5)
[2018-01-02 09:35] LABS: BLOOD UREA NITROGEN 20 mg/dl (7-20); CALCIUM 9.3 mg/dl (8.4-10.2); CHLORIDE 114 mmol/L (97-110); CREATININE 0.88 mg/dl (0.44-1.00); GLUCOSE 397 mg/dl (70-220); POTASSIUM 4.7 mmol/L (3.5-5.1); SODIUM 148 mmol/L (135-144)
[2018-01-02 09:40] LABS: ADD MAN DIFF? YES; POSITIVE DIFF @See below
[2018-01-02 09:44] LABS: ANION GAP 34 (8-16)
[2018-01-02 09:57] LABS: CARBON DIOXIDE < 5 mmol/L (21-31)
[2018-01-02 11:13] LABS: ANISOCYTOSIS 1+ (0-0); BAND NEUTROPHILS #M 2.3 10^3/ul (0.0-0.6); BAND NEUTROPHILS % (M) 10 % (0-4); BASOPHIL #M 0.2 10^3/ul (0.0-0.0); BASOPHILS % (M) 1 % (0-2); BURR CELLS 1+ (0-0); GIANT THROMBO% (M) 1 % (0-0); LYMPHOCYTES #M 0.6 10^3/ul (0.8-2.9); LYMPHOCYTES % (M) 3 % (15-51); MONOCYTE #M 0.6 10^3/ul (0.3-0.9); MONOCYTES % (M) 3 % (0-11); PLATELET ESTIMATE NORMAL; POIKILOCYTOSIS 1+ (0-0); POLYCHROMASIA 2+ (0-0); SEG NEUT #M 19.9 10^3/ul (1.6-7.5); SEGMENTED NEUTROPHILS (M) % 83 % (39-77); SMUDGE%M 2 % (0-0)
[2018-01-02] MEDS: DILTIAZEM-D5W 125MG/125ML DRIP 125 ML IV (18:14)
[2018-01-02 19:30] LABS: WHITE BLOOD COUNT 26.8 10^3/ul (4.8-10.8)
[2018-01-02 19:30] LABS: ABNORMAL IP MESSAGE 1; HEMATOCRIT 34.9 % (37.0-47.0); HEMOGLOBIN 9.9 g/dl (12.0-16.0); MEAN CORPUSCULAR HEMOGLOBIN 30.8 pg (29.0-33.0); MEAN CORPUSCULAR HGB CONC 28.4 g/dl (32.0-37.0); MEAN CORPUSCULAR VOLUME 108.7 fl (82.0-101.0); MEAN PLATELET VOLUME 10.7 fl (7.4-10.4); PLATELET COUNT 280 10^3/UL (140-415); RED BLOOD COUNT 3.21 10^6/ul (4.20-5.40)
[2018-01-02 19:36] LABS: ADD MAN DIFF? YES; POSITIVE DIFF @See below
[2018-01-02] MEDS: NORepinephrine 8MG/250 ML (PMX 250 ML IV (19:53)
[2018-01-02 19:59] LABS: LACTIC ACID 2.3 mmol/L (0.5-2.0)
[2018-01-02] MEDS ORDERED: PROPOFOL 100 ML IV (20:00)
[2018-01-02] MEDS ORDERED: GLUCAGON 1 MG INJ IM (20:00)
[2018-01-02] MEDS ORDERED: GLUCOSE GEL 15 GRAM TUBE PO ×2 (20:00)
[2018-01-02] MEDS ORDERED: DEXTROSE 50% 50 ML SYRINGE IV ×4 (20:00→22:30)
[2018-01-02] MEDS ORDERED: GLUCOSE GEL 15 GRAM TUBE BUCCAL (20:00)
[2018-01-02] MEDS: CEFTRIAXONE 1 GM/50 ML (PMX) 50 ML IVPB (20:01)
[2018-01-02 20:22] LABS: BAND NEUTROPHILS #M 0.5 10^3/ul (0.0-0.6); BAND NEUTROPHILS % (M) 2 % (0-4); EOSINOPHILS # 0.5 10^3/ul (0.0-0.5); EOSINOPHILS % (M) 2 % (0.0-7.0); LYMPHOCYTES # 2.1 10^3/ul (0.8-2.9); LYMPHOCYTES #M 2.1 10^3/ul (0.8-2.9); LYMPHOCYTES % (M) 8 % (15-51); MONOCYTE # 1.6 10^3/ul (0.3-0.9); MONOCYTE #M 1.6 10^3/ul (0.3-0.9); MONOCYTES % (M) 6 % (0-11); MYELOCYTES % (M) 4 % (0-0); SEGMENTED NEUTROPHILS (M) % 78 % (39-77)
[2018-01-02 20:23] LABS: BURR CELLS 2+
[2018-01-02] MEDS ORDERED: VANCOMYCIN IV PER PHARMACY XX (20:30)
[2018-01-02 20:58] LABS: AADO2 Arterial 595.5 mmHg (7.0-24.0); Arterial Base Excess -28.6 mmol/L (-3.0-3); Arterial Blood Gas Oxygen Sat 90.9 mmHG (95.0-98.0); Arterial COHb 0.3 % (0.0-3.0); Arterial Fraction of Oxyhgb 90.2 % (93.0-99.0); Arterial HCO3 5.2 mmol/L (22.0-26.0); Arterial MetHb 0.5 % (0.0-1.5); Arterial pCO2 34.6 mmhg (35-45); MODE VENT - AC; Site Right Brachial
[2018-01-02] MEDS: CIPROFLOXACIN 400MG/D5W 200 ML IVPB (21:21)
[2018-01-02 21:34] LABS: BLOOD UREA NITROGEN 33 mg/dl (7-20); CALCIUM 9.6 mg/dl (8.4-10.2); CHLORIDE 112 mmol/L (97-110); CREATININE 1.45 mg/dl (0.44-1.00); POTASSIUM 5.3 mmol/L (3.5-5.1); SODIUM 153 mmol/L (135-144)
[2018-01-02 21:52] LABS: ANION GAP 41 (8-16); CARBON DIOXIDE < 5 mmol/L (21-31)
[2018-01-02 21:53] LABS: GLUCOSE 706 mg/dl (70-220)
[2018-01-02] MEDS: NA BICARBONATE 8.4% 50 ML SYG IV ×3 (22:01→22:42)
[2018-01-02] MEDS ORDERED: PHENYLephrine 20MG IN 250 ML 250 ML IV (22:30)
[2018-01-02] MEDS: VANCOMYCIN 1.5 GM in DEXTROSE 5% 500 ML IVPB (22:36)
[2018-01-02] MEDS: ACCU-CHEK XX ×2 (22:42→23:30)
[2018-01-02] MEDS: SODIUM BICARBONATE (IV ADD) 150 MEQ in DEXTROSE 5% 850 ML IV (23:25)
[2018-01-02] MEDS: INSULIN HUMAN REGULAR 100 UNIT in SOD CHLORIDE 0.9% 99 ML IV (23:37)
[2018-01-03] MEDS ORDERED: INSULIN ASPART [NOVOLOG] 3 ML PEN SC
[2018-01-03] MEDS: ACCU-CHEK XX ×29 (00:30→20:45)
[2018-01-03] MEDS ORDERED: PHENYLephrine 40 MG in DEXTROSE 5% 496 ML IV (02:00)
[2018-01-03] MEDS: NORepinephrine 8MG/250 ML (PMX 250 ML IV ×3 (02:03→15:14)
[2018-01-03 03:22] LABS: ANION GAP 37 (8-16); BLOOD UREA NITROGEN 41 mg/dl (7-20); CALCIUM 8.8 mg/dl (8.4-10.2); CHLORIDE 110 mmol/L (97-110); CREATININE 1.47 mg/dl (0.44-1.00); SODIUM 152 mmol/L (135-144)
[2018-01-03 03:28] LABS: CARBON DIOXIDE 8 mmol/L (21-31); POTASSIUM 2.8 mmol/L (3.5-5.1)
[2018-01-03] MEDS: INSULIN HUMAN REGULAR 100 UNIT in SOD CHLORIDE 0.9% 99 ML IV ×3 (04:02→12:38)
[2018-01-03] MEDS: POTASSIUM CHLORIDE 40 MEQ in SOD CHLORIDE 0.45% 250 ML IVPB (04:11)
[2018-01-03 05:31] LABS: ABNORMAL IP MESSAGE 1; HEMATOCRIT 31.1 % (37.0-47.0); HEMOGLOBIN 9.5 g/dl (12.0-16.0); MEAN CORPUSCULAR HEMOGLOBIN 30.3 pg (29.0-33.0); MEAN CORPUSCULAR HGB CONC 30.5 g/dl (32.0-37.0); MEAN PLATELET VOLUME 11.3 fl (7.4-10.4); NUCLEATED RED BLOOD CELLS% 0.1 /100WBC (0.0-0.0); PLATELET COUNT 248 10^3/UL (140-415); RED BLOOD COUNT 3.14 10^6/ul (4.20-5.40)
[2018-01-03 05:31] LABS: WHITE BLOOD COUNT 15.9 10^3/ul (4.8-10.8)
[2018-01-03 06:10] LABS: ANION GAP 31 (8-16); BLOOD UREA NITROGEN 40 mg/dl (7-20); CALCIUM 8.9 mg/dl (8.4-10.2); CARBON DIOXIDE 13 mmol/L (21-31); CHLORIDE 111 mmol/L (97-110); CREATININE 1.41 mg/dl (0.44-1.00); SODIUM 152 mmol/L (135-144)
[2018-01-03 06:16] LABS: POSITIVE DIFF @See below
[2018-01-03 06:17] LABS: ADD MAN DIFF? YES
[2018-01-03 06:27] LABS: GLUCOSE 589 mg/dl (70-220); POTASSIUM 2.6 mmol/L (3.5-5.1)
[2018-01-03 07:52] LABS: BAND NEUTROPHILS #M 1.2 10^3/ul (0.0-0.6); BAND NEUTROPHILS % (M) 8 % (0-4); LYMPHOCYTES #M 0.9 10^3/ul (0.8-2.9); LYMPHOCYTES % (M) 6 % (15-51); MONOCYTE #M 0.7 10^3/ul (0.3-0.9); MONOCYTES % (M) 5 % (0-11); MYELOCYTES #M 0.6 10^3/ul (0.0-0.0); MYELOCYTES % (M) 4 % (0-0); PLATELET ESTIMATE NORMAL; POLYCHROMASIA 1+ (0-0); PROMYELOCYTES #M 0.3 10^3/ul (0-0); PROMYELOCYTES % (M) 2 % (0-0); SEG NEUT #M 12.1 10^3/ul (1.6-7.5); SEGMENTED NEUTROPHILS (M) % 75 % (39-77); SMUDGE%M 1 % (0-0)
[2018-01-03 08:40] LABS: AADO2 Arterial 297.7 mmHg (7.0-24.0); Allen Test ACCEPTAB; Arterial Blood Gas Oxygen Sat 99.2 mmHG (95.0-98.0); Arterial COHb 0.2 % (0.0-3.0); Arterial Fraction of Oxyhgb 98.7 % (93.0-99.0); Arterial HCO3 17.1 mmol/L (22.0-26.0); Arterial MetHb 0.3 % (0.0-1.5); Arterial Total Hemglobin 10.5 g/dl (12.0-18.0); Arterial pCO2 29.8 mmhg (35-45); MODE VENT - AC; Site Right Radial
[2018-01-03] MEDS: CIPROFLOXACIN 400MG/D5W 200 ML IVPB ×2 (08:47→20:44)
[2018-01-03] MEDS: LEVETIRACETAM (100 MG/ML) 5ML CUP GTB ×2 (08:47→20:43)
[2018-01-03] MEDS: FERROUS SULFATE 60 MG/ML 5ML CUP GTB ×2 (08:47→20:43)
[2018-01-03] MEDS: L ACIDOPHIL/B LACTIS/B LONGUM CAPSULE PO ×2 (08:47→21:26)
[2018-01-03] MEDS: ASCORBIC ACID 500 MG TAB GTB ×2 (08:47→20:43)
[2018-01-03] MEDS: ZINC SULFATE 220 MG CAP GTB (08:47)
[2018-01-03] MEDS: MULTIVITAMINS/MINERALS TAB GTB (08:48)
[2018-01-03] MEDS: MAGNESIUM OXIDE 400 MG TAB GTB ×3 (08:48→20:43)
[2018-01-03] MEDS: traMADol 50 MG TAB GTB ×2 (08:48→21:26)
[2018-01-03] MEDS: BALSAM PERU/CASTOR OIL 60 GM TUBE TOP ×2 (08:49→20:43)
[2018-01-03] MEDS: SODIUM BICARBONATE (IV ADD) 150 MEQ in DEXTROSE 5% 850 ML IV (09:37)
[2018-01-03] MEDS ORDERED: POTASSIUM CHLORIDE 50 ML IVPB (10:30)
[2018-01-03 11:42] LABS: ALBUMIN 2.6 g/dl (3.3-4.9); ANION GAP 21 (8-16); BLOOD UREA NITROGEN 41 mg/dl (7-20); CALCIUM 8.6 mg/dl (8.4-10.2); CARBON DIOXIDE 23 mmol/L (21-31); CHLORIDE 111 mmol/L (97-110); CREATININE 1.15 mg/dl (0.44-1.00); GLUCOSE 329 mg/dl (70-220); PHOSPHORUS 0.5 mg/dl (2.5-4.9); SODIUM 152 mmol/L (135-144)
[2018-01-03 11:43] LABS: ANION GAP 19 (8-16); BLOOD UREA NITROGEN 41 mg/dl (7-20); CALCIUM 8.6 mg/dl (8.4-10.2); CARBON DIOXIDE 24 mmol/L (21-31); CHLORIDE 111 mmol/L (97-110); CREATININE 1.27 mg/dl (0.44-1.00); GLUCOSE 333 mg/dl (70-220); SODIUM 151 mmol/L (135-144)
[2018-01-03 11:47] LABS: POTASSIUM 2.9 mmol/L (3.5-5.1)
[2018-01-03 11:48] LABS: POTASSIUM 2.8 mmol/L (3.5-5.1)
[2018-01-03 11:57] LABS: PHOSPHORUS 0.5 mg/dl (2.5-4.9)
[2018-01-03] MEDS: POTASSIUM CHLORIDE 40 MEQ in SOD CHLORIDE 0.45% 1,000 ML IV (12:09)
[2018-01-03 12:14] LABS: ADD UMIC YES; UR AMORPHOUS CRYSTAL FEW /HPF (NONE SEEN); UR ASCORBIC ACID NEGATIVE (NEGATIVE); UR BACTERIA FEW /HPF (NONE SEEN); UR BILIRUBIN (Dip) NEGATIVE (NEGATIVE); UR BLOOD (Dip) 3+ mg/dL (NEGATIVE); UR CLARITY CLOUDY (CLEAR); UR COLOR YELLOW (YELLOW); UR GLUCOSE (Dip) 3+ mg/dL (NEGATIVE); UR KETONES (Dip) 2+ mg/dL (NEGATIVE); UR LEUKOCYTE ESTERASE (Dip) 3+ Leu/ul (NEGATIVE); UR NITRITE (Dip) NEGATIVE (NEGATIVE); UR RBC 56 /HPF (0-5); UR SPECIFIC GRAVITY (Dip) 1.014 (1.003-1.030); UR TOTAL PROTEIN (Dip) 2+ mg/dl (NEGATIVE); UR UROBILINOGEN (Dip) NEGATIVE (NEGATIVE); UR WBC 139 /HPF (0-5)
[2018-01-03] MEDS: POTASSIUM CHLORIDE 30 MEQ in DEXTROSE 5% 250 ML IV (12:36)
[2018-01-03] MEDS: POTASSIUM PHOSPHATE 40 MEQ in SOD CHLORIDE 0.9% 250 ML IVPB (12:39)
[2018-01-03 16:43] LABS: ALBUMIN 2.8 g/dl (3.3-4.9); ANION GAP 30 (8-16); BLOOD UREA NITROGEN 38 mg/dl (7-20); CALCIUM 8.7 mg/dl (8.4-10.2); CARBON DIOXIDE 13 mmol/L (21-31); CHLORIDE 110 mmol/L (97-110); CREATININE 1.27 mg/dl (0.44-1.00); PHOSPHORUS 1.1 mg/dl (2.5-4.9); SODIUM 150 mmol/L (135-144)
[2018-01-03 16:48] LABS: GLUCOSE 568 mg/dl (70-220)
[2018-01-03] MEDS ORDERED: D5W-0.45 NACL + KCL 40 MEQ 1,000 ML IV (17:30)
[2018-01-03] MEDS: POTASSIUM CHLORIDE 40 MEQ in DEXTROSE 5%-0.45% NACL 1,000 ML IV (18:11)
[2018-01-03 19:31] LABS: ALBUMIN 2.6 g/dl (3.3-4.9); ANION GAP 13 (8-16); BLOOD UREA NITROGEN 40 mg/dl (7-20); CALCIUM 8.3 mg/dl (8.4-10.2); CARBON DIOXIDE 29 mmol/L (21-31); CHLORIDE 112 mmol/L (97-110); CREATININE 1.26 mg/dl (0.44-1.00); GLUCOSE 105 mg/dl (70-220); PHOSPHORUS 1.5 mg/dl (2.5-4.9); POTASSIUM 4.1 mmol/L (3.5-5.1); SODIUM 150 mmol/L (135-144)
[2018-01-03] MEDS ORDERED: Discontinue all previous diabetes medication and insulin orders. XX (20:00)
[2018-01-03] MEDS ORDERED: POTASSIUM CHLORIDE 40 MEQ in DEXTROSE 10%/0.2% NACL 1,000 ML IV (20:00)
[2018-01-03] MEDS ORDERED: POTASSIUM PHOSPHATE 20 MEQ in SOD CHLORIDE 0.9% 250 ML IVPB (20:30)
[2018-01-03] MEDS: CEFTRIAXONE 1 GM/50 ML (PMX) 50 ML IVPB (20:44)
[2018-01-03] MEDS: POTASSIUM PHOSPHATE 20 MEQ in DEXTROSE 5% 250 ML IVPB (21:26)
[2018-01-04] MEDS ORDERED: NORepinephrine 8MG/250 ML (PMX 0 ML (00:56)
[2018-01-04] MEDS: POTASSIUM CHLORIDE 40 MEQ in DEXTROSE 5%-0.45% NACL 1,000 ML IV (01:07)
[2018-01-04] MEDS: POTASSIUM PHOSPHATE 20 MEQ in DEXTROSE 5% 250 ML IVPB (03:31)
[2018-01-04 03:52] LABS: ADD MAN DIFF? NO
[2018-01-04 04:04] LABS: WHITE BLOOD COUNT 14.8 10^3/ul (4.8-10.8)
[2018-01-04 04:04] LABS: ABNORMAL IP MESSAGE 1; BASOPHIL # 0.1 10^3/ul (0.0-0.1); BASOPHILS % 0.4 % (0.0-2.0); EOSINOPHILS % 0.2 % (0.0-7.0); HEMATOCRIT 28.3 % (37.0-47.0); HEMOGLOBIN 9.3 g/dl (12.0-16.0); LYMPHOCYTES # 1.7 10^3/ul (0.8-2.9); LYMPHOCYTES % 11.6 % (15.0-51.0); MEAN CORPUSCULAR HEMOGLOBIN 29.9 pg (29.0-33.0); MEAN CORPUSCULAR HGB CONC 32.9 g/dl (32.0-37.0); MONOCYTE # 1.6 10^3/ul (0.3-0.9); MONOCYTES % 10.6 % (0.0-11.0); NEUTROPHIL # 10.8 10^3/ul (1.6-7.5); NEUTROPHILS % 73.1 % (39.0-77.0); PLATELET COUNT 191 10^3/UL (140-415); RED BLOOD COUNT 3.11 10^6/ul (4.20-5.40); RED CELL DISTRIBUTION WIDTH 15.6 % (11.5-14.5)
[2018-01-04 04:06] LABS: POSITIVE DIFF @See below
[2018-01-04 04:19] LABS: MAGNESIUM 1.5 mg/dl (1.7-2.5)
[2018-01-04 04:27] LABS: VANCOMYCIN,RANDOM 13.5 ug/ml
[2018-01-04 04:41] LABS: ALBUMIN 2.4 g/dl (3.3-4.9); ANION GAP 16 (8-16); BLOOD UREA NITROGEN 35 mg/dl (7-20); CALCIUM 7.5 mg/dl (8.4-10.2); CARBON DIOXIDE 25 mmol/L (21-31); CHLORIDE 110 mmol/L (97-110); CREATININE 1.24 mg/dl (0.44-1.00); GLUCOSE 318 mg/dl (70-220); PHOSPHORUS 3.3 mg/dl (2.5-4.9); POTASSIUM 5.5 mmol/L (3.5-5.1); SODIUM 145 mmol/L (135-144)
[2018-01-04] MEDS: ACCU-CHEK XX ×13 (06:00→18:58)
[2018-01-04] MEDS ORDERED: PENDING SANTYL ORDER FOR WOUND CARE XX (07:30)
[2018-01-04] MEDS: INSULIN HUMAN REGULAR 100 UNIT in SOD CHLORIDE 0.9% 99 ML IV (08:42)
[2018-01-04 08:44] LABS: Allen Test ACCEPTAB; Arterial Base Excess 1.5 mmol/L (-3.0-3); Arterial Blood Gas Oxygen Sat 98.8 mmHG (95.0-98.0); Arterial COHb 0 % (0.0-3.0); Arterial Fraction of Oxyhgb 98.6 % (93.0-99.0); Arterial HCO3 23.4 mmol/L (22.0-26.0); Arterial MetHb 0.2 % (0.0-1.5); Arterial Total Hemglobin 11.7 g/dl (12.0-18.0); Arterial pCO2 28.4 mmhg (35-45); MODE VENT - AC; Site Right Radial
[2018-01-04] MEDS: L ACIDOPHIL/B LACTIS/B LONGUM CAPSULE PO ×2 (09:30→22:07)
[2018-01-04] MEDS: ZINC SULFATE 220 MG CAP GTB (09:30)
[2018-01-04] MEDS: LEVETIRACETAM (100 MG/ML) 5ML CUP GTB ×2 (09:30→22:06)
[2018-01-04] MEDS: CIPROFLOXACIN 400MG/D5W 200 ML IVPB ×2 (09:30→22:06)
[2018-01-04] MEDS: ASCORBIC ACID 500 MG TAB GTB ×2 (09:30→22:06)
[2018-01-04] MEDS: FERROUS SULFATE 60 MG/ML 5ML CUP GTB ×2 (09:30→22:06)
[2018-01-04] MEDS: MAGNESIUM OXIDE 400 MG TAB GTB ×3 (09:30→22:06)
[2018-01-04] MEDS: COLLAGENASE 30 GM TUBE TOP ×2 (09:31→22:06)
[2018-01-04] MEDS: traMADol 50 MG TAB GTB ×2 (09:32→22:06)
[2018-01-04] MEDS: MULTIVITAMINS 30 ML CUP GTB (09:52)
[2018-01-04] MEDS: MAGNESIUM SULFATE 2 GM/50 ML 50 ML IVPB (09:52)
[2018-01-04] MEDS: DEXTROSE 5%-0.45% NACL 1,000 ML IV (09:52)
[2018-01-04] MEDS: CEFEPIME 1GM/50 ML (PMX) 50 ML IVPB ×2 (12:23→22:05)
[2018-01-04] MEDS: VANCOMYCIN 1.25 GM in SOD CHLORIDE 0.45% 250 ML IVPB (13:28)
[2018-01-04] MEDS: BALSAM PERU/CASTOR OIL 60 GM TUBE TOP ×2 (14:40→22:08)
[2018-01-04] MEDS ORDERED: VANCOMYCIN 1.25 GM in SOD CHLORIDE 0.45% 250 ML IVPB (22:00)
[2018-01-05] MEDS: DEXTROSE 5%-0.45% NACL 1,000 ML IV ×2 (03:07→12:10)
[2018-01-05 05:44] LABS: HEMATOCRIT 24.6 % (37.0-47.0); HEMOGLOBIN 8.1 g/dl (12.0-16.0); MEAN CORPUSCULAR HEMOGLOBIN 29.7 pg (29.0-33.0); MEAN CORPUSCULAR HGB CONC 32.9 g/dl (32.0-37.0); MEAN CORPUSCULAR VOLUME 90.1 fl (82.0-101.0); MEAN PLATELET VOLUME 11.7 fl (7.4-10.4); PLATELET COUNT 131 10^3/UL (140-415); RED BLOOD COUNT 2.73 10^6/ul (4.20-5.40); RED CELL DISTRIBUTION WIDTH 15.8 % (11.5-14.5)
[2018-01-05 05:44] LABS: WHITE BLOOD COUNT 10.2 10^3/ul (4.8-10.8)
[2018-01-05 05:57] LABS: POSITIVE DIFF @See below
[2018-01-05 05:58] LABS: ADD MAN DIFF? YES
[2018-01-05 06:26] LABS: ANION GAP 11 (8-16); BLOOD UREA NITROGEN 26 mg/dl (7-20); CALCIUM 7.2 mg/dl (8.4-10.2); CARBON DIOXIDE 26 mmol/L (21-31); CHLORIDE 104 mmol/L (97-110); CREATININE 1.12 mg/dl (0.44-1.00); GLUCOSE 310 mg/dl (70-220); POTASSIUM 3.8 mmol/L (3.5-5.1); SODIUM 137 mmol/L (135-144)
[2018-01-05 07:08] LABS: MAGNESIUM 1.9 mg/dl (1.7-2.5)
[2018-01-05 07:58] LABS: AADO2 Arterial 74.7 mmHg (7.0-24.0); Allen Test ACCEPTAB; Arterial Base Excess 2.2 mmol/L (-3.0-3); Arterial Blood Gas Oxygen Sat 97.9 mmHG (95.0-98.0); Arterial COHb 0.3 % (0.0-3.0); Arterial Fraction of Oxyhgb 97.5 % (93.0-99.0); Arterial HCO3 24.4 mmol/L (22.0-26.0); Arterial MetHb 0.1 % (0.0-1.5); Arterial Total Hemglobin 9.4 g/dl (12.0-18.0); Arterial pCO2 29.3 mmhg (35-45); MODE VENT - AC; Site Right Radial
[2018-01-05] MEDS: ACCU-CHEK XX ×8 (08:04→17:57)
[2018-01-05 09:05] LABS: BAND NEUTROPHILS #M 0.9 10^3/ul (0.0-0.6); BAND NEUTROPHILS % (M) 9 % (0-4); EOSINOPHILS % (M) 3 % (0-7); ERYTHROBLAST% (NRBC) (M) 1 % (0-0); LYMPHOCYTES #M 1.1 10^3/ul (0.8-2.9); LYMPHOCYTES % (M) 11 % (15-51); METAMYELOCYTES #M 0.1 10^3/ul (0.0-0.0); METAMYELOCYTES %M 1 % (0-0); MONOCYTE #M 0.3 10^3/ul (0.3-0.9); MONOCYTES % (M) 3 % (0-11); PLATELET ESTIMATE DECREASED; POLYCHROMASIA 1+ (0-0); SEG NEUT #M 7.5 10^3/ul (1.6-7.5); SEGMENTED NEUTROPHILS (M) % 73 % (39-77); SMUDGE%M 14 % (0-0); TARGET CELLS 1+ (0-0)
[2018-01-05] MEDS: ASCORBIC ACID 500 MG TAB GTB ×2 (10:25→21:29)
[2018-01-05] MEDS: MAGNESIUM OXIDE 400 MG TAB GTB ×3 (10:25→21:28)
[2018-01-05] MEDS: ZINC SULFATE 220 MG CAP GTB (10:25)
[2018-01-05] MEDS: FERROUS SULFATE 60 MG/ML 5ML CUP GTB ×2 (10:25→21:28)
[2018-01-05] MEDS: traMADol 50 MG TAB GTB ×2 (10:25→21:28)
[2018-01-05] MEDS: LEVETIRACETAM (100 MG/ML) 5ML CUP GTB ×2 (10:25→21:28)
[2018-01-05] MEDS: CEFEPIME 1GM/50 ML (PMX) 50 ML IVPB ×2 (10:25→21:29)
[2018-01-05] MEDS: CIPROFLOXACIN 400MG/D5W 200 ML IVPB ×2 (10:25→21:28)
[2018-01-05] MEDS: BALSAM PERU/CASTOR OIL 60 GM TUBE TOP ×2 (10:26→21:33)
[2018-01-05] MEDS: MULTIVITAMINS 30 ML CUP GTB (10:26)
[2018-01-05] MEDS: L ACIDOPHIL/B LACTIS/B LONGUM CAPSULE PO ×2 (10:30→21:30)
[2018-01-05] MEDS: FUROSEMIDE 40 MG INJ IV (10:55)
[2018-01-05] MEDS: VANCOMYCIN 1.25 GM in SOD CHLORIDE 0.45% 250 ML IVPB (12:45)
[2018-01-05] MEDS: INSULIN ASPART [NOVOLOG] 3 ML PEN SC (21:31)
[2018-01-05] MEDS: COLLAGENASE 30 GM TUBE TOP (21:32)
[2018-01-05] MEDS: INSULIN DETEMIR [LEVEMIR] 3ML CART SC (21:32)
[2018-01-06] MEDS: INSULIN ASPART [NOVOLOG] 3 ML PEN SC ×6 (01:00→20:13)
[2018-01-06] MEDS: DEXTROSE 5%-0.45% NACL 1,000 ML IV ×3 (04:43→22:22)
[2018-01-06 06:06] LABS: HEMATOCRIT 24.3 % (37.0-47.0); HEMOGLOBIN 8.1 g/dl (12.0-16.0); MEAN CORPUSCULAR HEMOGLOBIN 30.3 pg (29.0-33.0); MEAN CORPUSCULAR HGB CONC 33.3 g/dl (32.0-37.0); PLATELET COUNT 150 10^3/UL (140-415); RED BLOOD COUNT 2.67 10^6/ul (4.20-5.40); RED CELL DISTRIBUTION WIDTH 15.3 % (11.5-14.5)
[2018-01-06 06:07] LABS: POSITIVE DIFF @See below
[2018-01-06 06:08] LABS: ADD MAN DIFF? YES
[2018-01-06 06:37] LABS: BLOOD UREA NITROGEN 24 mg/dl (7-20); CALCIUM 7.7 mg/dl (8.4-10.2); CARBON DIOXIDE 32 mmol/L (21-31); CHLORIDE 99 mmol/L (97-110); CREATININE 1.11 mg/dl (0.44-1.00); GLUCOSE 284 mg/dl (70-220); MAGNESIUM 1.8 mg/dl (1.7-2.5); PHOSPHORUS 1.5 mg/dl (2.5-4.9); SODIUM 136 mmol/L (135-144)
[2018-01-06 07:40] LABS: ANION GAP 8 (8-16)
[2018-01-06 07:43] LABS: POTASSIUM 3.2 mmol/L (3.5-5.1)
[2018-01-06] MEDS: ACCU-CHEK XX ×25 (07:46→07:54)
[2018-01-06 08:17] LABS: AADO2 Arterial 68.6 mmHg (7.0-24.0); Allen Test ACCEPTAB; Arterial Base Excess 7.2 mmol/L (-3.0-3); Arterial Blood Gas Oxygen Sat 97.5 mmHG (95.0-98.0); Arterial COHb 0.2 % (0.0-3.0); Arterial HCO3 29.4 mmol/L (22.0-26.0); Arterial MetHb 0.3 % (0.0-1.5); Arterial Total Hemglobin 9.3 g/dl (12.0-18.0); Arterial pCO2 32.4 mmhg (35-45); MODE VENT - AC; Site Right Radial
[2018-01-06 08:18] LABS: BAND NEUTROPHILS #M 0.9 10^3/ul (0.0-0.6); BAND NEUTROPHILS % (M) 9 % (0-4); EOSINOPHILS % (M) 2 % (0-7); GIANT THROMBO% (M) 2 % (0-0); LYMPHOCYTES #M 0.7 10^3/ul (0.8-2.9); LYMPHOCYTES % (M) 7 % (15-51); METAMYELOCYTES #M 0.2 10^3/ul (0.0-0.0); METAMYELOCYTES %M 2 % (0-0); MONOCYTE #M 0.4 10^3/ul (0.3-0.9); MONOCYTES % (M) 4 % (0-11); PLATELET ESTIMATE NORMAL; POLYCHROMASIA 2+ (0-0); PROMYELOCYTES #M 0.1 10^3/ul (0-0); PROMYELOCYTES % (M) 1 % (0-0); SEG NEUT #M 7.6 10^3/ul (1.6-7.5); SEGMENTED NEUTROPHILS (M) % 75 % (39-77); SMUDGE%M 2 % (0-0)
[2018-01-06] MEDS: ZINC SULFATE 220 MG CAP GTB (08:40)
[2018-01-06] MEDS: FUROSEMIDE 40 MG INJ IV (08:40)
[2018-01-06] MEDS: MAGNESIUM OXIDE 400 MG TAB GTB ×3 (08:40→20:12)
[2018-01-06] MEDS: FERROUS SULFATE 60 MG/ML 5ML CUP GTB ×2 (08:40→20:13)
[2018-01-06] MEDS: L ACIDOPHIL/B LACTIS/B LONGUM CAPSULE PO ×2 (08:40→20:12)
[2018-01-06] MEDS: LEVETIRACETAM (100 MG/ML) 5ML CUP GTB ×2 (08:40→20:13)
[2018-01-06] MEDS: MULTIVITAMINS 30 ML CUP GTB (08:40)
[2018-01-06] MEDS: ASCORBIC ACID 500 MG TAB GTB ×2 (08:41→20:13)
[2018-01-06] MEDS: CEFEPIME 1GM/50 ML (PMX) 50 ML IVPB ×2 (08:41→20:12)
[2018-01-06] MEDS: BALSAM PERU/CASTOR OIL 60 GM TUBE TOP ×2 (08:41→20:14)
[2018-01-06] MEDS: traMADol 50 MG TAB GTB ×2 (08:41→20:13)
[2018-01-06] MEDS: INSULIN DETEMIR [LEVEMIR] 3ML CART SC ×2 (09:06→20:26)
[2018-01-06] MEDS: ONDANSETRON 4 MG INJ IV (09:19)
[2018-01-06] MEDS: CIPROFLOXACIN 400MG/D5W 200 ML IVPB (09:29)
[2018-01-06 10:04] LABS: GLUCOSE 714 mg/dl (70-220)
[2018-01-06] MEDS: POTASSIUM PHOSPHATE 40 MEQ in SOD CHLORIDE 0.9% 250 ML IVPB (11:08)
[2018-01-06] MEDS: METOCLOPRAMIDE 10 MG INJ IV ×2 (12:24→17:45)
[2018-01-06] MEDS: VANCOMYCIN 1.25 GM in SOD CHLORIDE 0.45% 250 ML IVPB (12:27)
[2018-01-06] MEDS: ACETAMINOPHEN 650MG/20.3ML CUP GTB (14:23)
[2018-01-06] MEDS: PANTOPRAZOLE 40 MG INJ IV (14:23)
[2018-01-06 19:19] LABS: INR 1.19; PROTIME 15.3 Sec (11.9-14.9); PT RATIO 1.2
[2018-01-06 19:20] LABS: PARTIAL THROMBOPLASTIN TIME 39.3 Sec (25.0-35.0)
[2018-01-06 19:28] LABS: AMYLASE 55 U/L (11-123)
[2018-01-06 19:28] LABS: LIPASE 67 U/L (23-300)
[2018-01-06] MEDS: PEG/ELECTROLYTES 4L BTL PO (20:12)
[2018-01-07] MEDS: METOCLOPRAMIDE 10 MG INJ IV ×4 (00:35→18:05)
[2018-01-07] MEDS: INSULIN ASPART [NOVOLOG] 3 ML PEN SC ×6 (00:36→20:35)
[2018-01-07] MEDS: PANTOPRAZOLE 40 MG INJ IV (05:29)
[2018-01-07 05:46] LABS: ADD MAN DIFF? NO
[2018-01-07 05:51] LABS: BASOPHILS % 0.2 % (0.0-2.0); EOSINOPHILS # 0.3 10^3/ul (0.0-0.5); EOSINOPHILS % 2.7 % (0.0-7.0); HEMATOCRIT 22.8 % (37.0-47.0); HEMOGLOBIN 7.7 g/dl (12.0-16.0); LYMPHOCYTES # 1.2 10^3/ul (0.8-2.9); LYMPHOCYTES % 13.4 % (15.0-51.0); MEAN CORPUSCULAR HEMOGLOBIN 30.3 pg (29.0-33.0); MEAN CORPUSCULAR HGB CONC 33.8 g/dl (32.0-37.0); MEAN CORPUSCULAR VOLUME 89.8 fl (82.0-101.0); MONOCYTE # 0.5 10^3/ul (0.3-0.9); MONOCYTES % 4.9 % (0.0-11.0); NEUTROPHIL # 7.2 10^3/ul (1.6-7.5); NEUTROPHILS % 77.8 % (39.0-77.0); PLATELET COUNT 169 10^3/UL (140-415); RED BLOOD COUNT 2.54 10^6/ul (4.20-5.40); RED CELL DISTRIBUTION WIDTH 15.3 % (11.5-14.5)
[2018-01-07 05:51] LABS: WHITE BLOOD COUNT 9.2 10^3/ul (4.8-10.8)
[2018-01-07] MEDS ORDERED: PANTOPRAZOLE 40 MG INJ IV (06:00)
[2018-01-07 06:44] LABS: ANION GAP 10 (8-16); BLOOD UREA NITROGEN 18 mg/dl (7-20); CALCIUM 7.5 mg/dl (8.4-10.2); CARBON DIOXIDE 30 mmol/L (21-31); CHLORIDE 104 mmol/L (97-110); CREATININE 1.14 mg/dl (0.44-1.00); GLUCOSE 160 mg/dl (70-220); MAGNESIUM 1.6 mg/dl (1.7-2.5); PHOSPHORUS 3.3 mg/dl (2.5-4.9); POTASSIUM 3.1 mmol/L (3.5-5.1); SODIUM 141 mmol/L (135-144)
[2018-01-07] MEDS: MULTIVITAMINS 30 ML CUP GTB (08:56)
[2018-01-07] MEDS: FERROUS SULFATE 60 MG/ML 5ML CUP GTB ×2 (08:56→20:33)
[2018-01-07] MEDS: ZINC SULFATE 220 MG CAP GTB (08:56)
[2018-01-07] MEDS: LEVETIRACETAM (100 MG/ML) 5ML CUP GTB ×2 (08:56→20:33)
[2018-01-07] MEDS: ASCORBIC ACID 500 MG TAB GTB ×2 (08:57→20:33)
[2018-01-07] MEDS: L ACIDOPHIL/B LACTIS/B LONGUM CAPSULE PO ×2 (08:57→20:33)
[2018-01-07] MEDS: CEFEPIME 1GM/50 ML (PMX) 50 ML IVPB (08:57)
[2018-01-07] MEDS: MAGNESIUM OXIDE 400 MG TAB GTB ×3 (08:57→20:32)
[2018-01-07] MEDS: traMADol 50 MG TAB GTB ×2 (08:57→20:33)
[2018-01-07] MEDS: BALSAM PERU/CASTOR OIL 60 GM TUBE TOP ×2 (08:58→20:35)
[2018-01-07] MEDS: COLLAGENASE 30 GM TUBE TOP (08:58)
[2018-01-07] MEDS: INSULIN DETEMIR [LEVEMIR] 3ML CART SC (09:00)
[2018-01-07] MEDS: FUROSEMIDE 40 MG INJ IV (09:01)
[2018-01-07] MEDS: POTASSIUM CHLORIDE 30 MEQ in SOD CHLORIDE 0.9% 250 ML IV (10:28)
[2018-01-07] MEDS: MAGNESIUM SULFATE 1 GM/D5W 100 ML IVPB (11:59)
[2018-01-07] MEDS: CEFTRIAXONE 1 GM/50 ML (PMX) 50 ML IVPB (14:41)
[2018-01-07] MEDS: DEXTROSE 5%-0.45% NACL 1,000 ML IV (14:42)
[2018-01-07] MEDS ORDERED: DEXTROSE 50% 50 ML SYRINGE ×2 (16:57→18:57)
[2018-01-07] MEDS: DEXTROSE 50% 50 ML SYRINGE IV ×2 (16:59→19:10)
[2018-01-07 18:41] LABS: PROCALCITONIN 10.81 ng/mL (<0.10)
[2018-01-07 20:57] LABS: AADO2 Arterial 64.2 mmHg (7.0-24.0); Allen Test ACCEPTAB; Arterial Base Excess 6.1 mmol/L (-3.0-3); Arterial Blood Gas Oxygen Sat 97.7 mmHG (95.0-98.0); Arterial COHb 0.3 % (0.0-3.0); Arterial MetHb 0.4 % (0.0-1.5); Arterial pCO2 34.8 mmhg (35-45); Blood Gas PS 14; MODE VENT - SIMV; Site Right Radial
[2018-01-08] MEDS: METOCLOPRAMIDE 10 MG INJ IV ×4 (00:20→17:40)
[2018-01-08] MEDS ORDERED: DEXTROSE 50% 50 ML SYRINGE ×2 (00:22→04:46)
[2018-01-08] MEDS: DEXTROSE 50% 50 ML SYRINGE IV ×2 (00:23→04:47)
[2018-01-08] MEDS: INSULIN ASPART [NOVOLOG] 3 ML PEN SC ×6 (00:23→20:39)
[2018-01-08] MEDS: DEXTROSE 5%-0.45% NACL 1,000 ML IV (04:01)
[2018-01-08 04:57] LABS: ADD MAN DIFF? NO
[2018-01-08 05:01] LABS: WHITE BLOOD COUNT 6.2 10^3/ul (4.8-10.8)
[2018-01-08 05:01] LABS: BASOPHILS % 0.3 % (0.0-2.0); EOSINOPHILS # 0.4 10^3/ul (0.0-0.5); EOSINOPHILS % 6.6 % (0.0-7.0); HEMATOCRIT 22.3 % (37.0-47.0); HEMOGLOBIN 7.4 g/dl (12.0-16.0); LYMPHOCYTES # 1.5 10^3/ul (0.8-2.9); LYMPHOCYTES % 23.6 % (15.0-51.0); MEAN CORPUSCULAR HEMOGLOBIN 30.1 pg (29.0-33.0); MEAN CORPUSCULAR HGB CONC 33.2 g/dl (32.0-37.0); MEAN CORPUSCULAR VOLUME 90.7 fl (82.0-101.0); MEAN PLATELET VOLUME 11.6 fl (7.4-10.4); MONOCYTE # 0.5 10^3/ul (0.3-0.9); MONOCYTES % 7.9 % (0.0-11.0); NEUTROPHIL # 3.8 10^3/ul (1.6-7.5); NEUTROPHILS % 60.8 % (39.0-77.0); PLATELET COUNT 239 10^3/UL (140-415); RED BLOOD COUNT 2.46 10^6/ul (4.20-5.40); RED CELL DISTRIBUTION WIDTH 15.1 % (11.5-14.5)
[2018-01-08] MEDS: PANTOPRAZOLE 40 MG INJ IV (05:25)
[2018-01-08 05:31] LABS: ANION GAP 8 (8-16); BLOOD UREA NITROGEN 14 mg/dl (7-20); CALCIUM 7.5 mg/dl (8.4-10.2); CARBON DIOXIDE 32 mmol/L (21-31); CHLORIDE 103 mmol/L (97-110); GLUCOSE 56 mg/dl (70-220); SODIUM 140 mmol/L (135-144)
[2018-01-08] MEDS ORDERED: POTASSIUM CHLORIDE 30 MEQ in SOD CHLORIDE 0.9% 250 ML IV (06:00)
[2018-01-08] MEDS: POTASSIUM CHLORIDE 30 MEQ in SOD CHLORIDE 0.9% 250 ML IV* (06:41)
[2018-01-08] MEDS: MULTIVITAMINS 30 ML CUP GTB (08:28)
[2018-01-08] MEDS: FERROUS SULFATE 60 MG/ML 5ML CUP GTB ×2 (08:29→20:27)
[2018-01-08] MEDS: ZINC SULFATE 220 MG CAP GTB (08:29)
[2018-01-08] MEDS: ASCORBIC ACID 500 MG TAB GTB ×2 (08:29→20:28)
[2018-01-08] MEDS: MAGNESIUM OXIDE 400 MG TAB GTB ×3 (08:29→20:27)
[2018-01-08] MEDS: LEVETIRACETAM (100 MG/ML) 5ML CUP GTB ×2 (08:29→20:27)
[2018-01-08] MEDS: COLLAGENASE 30 GM TUBE TOP (08:30)
[2018-01-08] MEDS: BALSAM PERU/CASTOR OIL 60 GM TUBE TOP ×2 (08:30→20:28)
[2018-01-08] MEDS: FUROSEMIDE 40 MG INJ IV (08:31)
[2018-01-08] MEDS: L ACIDOPHIL/B LACTIS/B LONGUM CAPSULE PO ×2 (08:35→20:28)
[2018-01-08] MEDS: LIDOCAINE 100 MG SYRINGE ×2 (08:36→08:37)
[2018-01-08] MEDS: traMADol 50 MG TAB GTB ×2 (08:36→20:27)
[2018-01-08] MEDS: PROPOFOL 60 ML (08:37)
[2018-01-08 11:09] LABS: AADO2 Arterial 54.7 mmHg (7.0-24.0); Allen Test ACCEPTAB; Arterial Base Excess 4.6 mmol/L (-3.0-3); Arterial COHb 0.3 % (0.0-3.0); Arterial Fraction of Oxyhgb 97.2 % (93.0-99.0); Arterial HCO3 28.4 mmol/L (22.0-26.0); Arterial MetHb 0.5 % (0.0-1.5); Arterial Total Hemglobin 9.1 g/dl (12.0-18.0); Arterial pCO2 38.7 mmhg (35-45); Blood Gas PS 10; MODE VENT - CPAP; Site Right Radial
[2018-01-08] MEDS: INSULIN DETEMIR [LEVEMIR] 3ML CART SC ×2 (11:29→20:39)
[2018-01-08] MEDS: CEFTRIAXONE 1 GM/50 ML (PMX) 50 ML IVPB (13:42)
[2018-01-08] MEDS: OLANZAPINE 5 MG TAB PO (20:42)
[2018-01-09] MEDS: METOCLOPRAMIDE 10 MG INJ IV ×5 (00:24→23:14)
[2018-01-09] MEDS: INSULIN ASPART [NOVOLOG] 3 ML PEN SC ×6 (00:27→22:04)
[2018-01-09] MEDS: PANTOPRAZOLE 40 MG INJ IV (05:10)
[2018-01-09 06:10] LABS: ADD MAN DIFF? NO
[2018-01-09 06:22] LABS: BASOPHILS % 0.5 % (0.0-2.0); EOSINOPHILS # 0.5 10^3/ul (0.0-0.5); EOSINOPHILS % 7.6 % (0.0-7.0); HEMATOCRIT 25.3 % (37.0-47.0); HEMOGLOBIN 8.2 g/dl (12.0-16.0); LYMPHOCYTES # 1.2 10^3/ul (0.8-2.9); LYMPHOCYTES % 20.6 % (15.0-51.0); MEAN CORPUSCULAR HEMOGLOBIN 29.7 pg (29.0-33.0); MEAN CORPUSCULAR HGB CONC 32.4 g/dl (32.0-37.0); MEAN CORPUSCULAR VOLUME 91.7 fl (82.0-101.0); MEAN PLATELET VOLUME 11.3 fl (7.4-10.4); MONOCYTE # 0.6 10^3/ul (0.3-0.9); MONOCYTES % 9.4 % (0.0-11.0); NEUTROPHIL # 3.7 10^3/ul (1.6-7.5); NEUTROPHILS % 61.2 % (39.0-77.0); PLATELET COUNT 348 10^3/UL (140-415); RED BLOOD COUNT 2.76 10^6/ul (4.20-5.40); RED CELL DISTRIBUTION WIDTH 15.1 % (11.5-14.5)
[2018-01-09 07:28] LABS: ANION GAP 10 (8-16); BLOOD UREA NITROGEN 18 mg/dl (7-20); CALCIUM 8.2 mg/dl (8.4-10.2); CARBON DIOXIDE 30 mmol/L (21-31); CHLORIDE 102 mmol/L (97-110); CREATININE 1.02 mg/dl (0.44-1.00); GLUCOSE 219 mg/dl (70-220); POTASSIUM 3.6 mmol/L (3.5-5.1); SODIUM 138 mmol/L (135-144)
[2018-01-09] MEDS: INSULIN DETEMIR [LEVEMIR] 3ML CART SC ×3 (08:25→23:16)
[2018-01-09] MEDS: COLLAGENASE 30 GM TUBE TOP (08:26)
[2018-01-09] MEDS: BALSAM PERU/CASTOR OIL 60 GM TUBE TOP ×2 (08:26→22:17)
[2018-01-09] MEDS: LEVETIRACETAM (100 MG/ML) 5ML CUP GTB ×2 (08:42→21:51)
[2018-01-09] MEDS: FUROSEMIDE 40 MG INJ IV (08:42)
[2018-01-09] MEDS: MULTIVITAMINS 30 ML CUP GTB (08:42)
[2018-01-09] MEDS: OLANZAPINE 5 MG TAB PO (08:42)
[2018-01-09] MEDS: ZINC SULFATE 220 MG CAP GTB (08:42)
[2018-01-09] MEDS: FERROUS SULFATE 60 MG/ML 5ML CUP GTB ×2 (08:42→21:51)
[2018-01-09] MEDS: MAGNESIUM OXIDE 400 MG TAB GTB ×3 (08:42→21:51)
[2018-01-09] MEDS: ASCORBIC ACID 500 MG TAB GTB ×2 (08:42→21:52)
[2018-01-09] MEDS: L ACIDOPHIL/B LACTIS/B LONGUM CAPSULE PO ×2 (08:44→21:52)
[2018-01-09] MEDS: traMADol 50 MG TAB GTB ×2 (08:44→21:52)
[2018-01-09 09:46] LABS: IRON 13 ug/dl (35-150)
[2018-01-09 09:55] LABS: % IRON SATURATION 8 % SAT (22-52); TOTAL IRON BINDING CAPACITY 169 ug/dl (241-421)
[2018-01-09] MEDS: CEFTRIAXONE 1 GM/50 ML (PMX) 50 ML IVPB (14:47)
[2018-01-09] MEDS: ENOXAPARIN 100 MG/ML SYG SC (22:03)
[2018-01-10] MEDS: INSULIN ASPART [NOVOLOG] 3 ML PEN SC ×6 (01:46→20:12)
[2018-01-10] MEDS ORDERED: DEXTROSE 50% 50 ML SYRINGE (02:32)
[2018-01-10] MEDS: DEXTROSE 50% 50 ML SYRINGE IV ×3 (02:42→17:57)
[2018-01-10] MEDS: PANTOPRAZOLE 40 MG INJ IV (06:14)
[2018-01-10] MEDS: METOCLOPRAMIDE 10 MG INJ IV ×3 (06:14→17:48)
[2018-01-10 07:51] LABS: ADD MAN DIFF? NO
[2018-01-10 07:58] LABS: BASOPHILS % 0.3 % (0.0-2.0); EOSINOPHILS # 0.3 10^3/ul (0.0-0.5); EOSINOPHILS % 5.2 % (0.0-7.0); HEMATOCRIT 25.5 % (37.0-47.0); HEMOGLOBIN 8.2 g/dl (12.0-16.0); LYMPHOCYTES # 1.4 10^3/ul (0.8-2.9); MEAN CORPUSCULAR HEMOGLOBIN 29.7 pg (29.0-33.0); MEAN CORPUSCULAR HGB CONC 32.2 g/dl (32.0-37.0); MEAN CORPUSCULAR VOLUME 92.4 fl (82.0-101.0); MONOCYTE # 0.7 10^3/ul (0.3-0.9); MONOCYTES % 10.8 % (0.0-11.0); NEUTROPHIL # 3.6 10^3/ul (1.6-7.5); NEUTROPHILS % 59.9 % (39.0-77.0); PLATELET COUNT 438 10^3/UL (140-415); RED BLOOD COUNT 2.76 10^6/ul (4.20-5.40); RED CELL DISTRIBUTION WIDTH 14.9 % (11.5-14.5)
[2018-01-10] MEDS: INSULIN DETEMIR [LEVEMIR] 3ML CART SC ×4 (08:00→20:05)
[2018-01-10 08:17] LABS: ANION GAP 10 (8-16); BLOOD UREA NITROGEN 22 mg/dl (7-20); CALCIUM 8.1 mg/dl (8.4-10.2); CARBON DIOXIDE 37 mmol/L (21-31); CHLORIDE 101 mmol/L (97-110); CREATININE 0.99 mg/dl (0.44-1.00); POTASSIUM 3.3 mmol/L (3.5-5.1); SODIUM 145 mmol/L (135-144)
[2018-01-10 08:23] LABS: GLUCOSE 40 mg/dl (70-220)
[2018-01-10] MEDS: LEVETIRACETAM (100 MG/ML) 5ML CUP GTB ×2 (09:19→20:23)
[2018-01-10] MEDS: OLANZAPINE 5 MG TAB PO (09:19)
[2018-01-10] MEDS: ASCORBIC ACID 500 MG TAB GTB ×2 (09:19→20:23)
[2018-01-10] MEDS: MAGNESIUM OXIDE 400 MG TAB GTB ×3 (09:19→20:23)
[2018-01-10] MEDS: ZINC SULFATE 220 MG CAP GTB (09:19)
[2018-01-10] MEDS: L ACIDOPHIL/B LACTIS/B LONGUM CAPSULE PO ×2 (09:19→20:23)
[2018-01-10] MEDS: traMADol 50 MG TAB GTB ×2 (09:19→20:23)
[2018-01-10] MEDS: MULTIVITAMINS 30 ML CUP GTB (09:20)
[2018-01-10] MEDS: FUROSEMIDE 40 MG INJ IV (09:20)
[2018-01-10] MEDS: FERROUS SULFATE 60 MG/ML 5ML CUP GTB ×2 (09:20→20:23)
[2018-01-10] MEDS: BALSAM PERU/CASTOR OIL 60 GM TUBE TOP ×2 (09:22→20:24)
[2018-01-10] MEDS: COLLAGENASE 30 GM TUBE TOP (09:22)
[2018-01-10] MEDS: ENOXAPARIN 100 MG/ML SYG SC ×2 (09:23→20:42)
[2018-01-10] MEDS ORDERED: [UNRECOGNIZED DRUG - REMARK] XX (13:30)
[2018-01-10] MEDS: CEFTRIAXONE 2 GM/50 ML (PMX) 50 ML IVPB (13:48)
[2018-01-10 15:36] LABS: PROCALCITONIN 0.45 ng/mL (<0.10)
[2018-01-10] MEDS: METOPROLOL 5 MG INJ IV (20:47)
[2018-01-11] MEDS: METOCLOPRAMIDE 10 MG INJ IV ×4 (00:35→17:39)
[2018-01-11] MEDS: INSULIN ASPART [NOVOLOG] 3 ML PEN SC ×6 (00:48→20:33)
[2018-01-11] MEDS: PANTOPRAZOLE 40 MG INJ IV (06:30)
[2018-01-11 07:50] LABS: ADD MAN DIFF? NO
[2018-01-11 08:02] LABS: WHITE BLOOD COUNT 5.4 10^3/ul (4.8-10.8)
[2018-01-11 08:02] LABS: BASOPHIL # 0.1 10^3/ul (0.0-0.1); BASOPHILS % 1.3 % (0.0-2.0); EOSINOPHILS # 0.3 10^3/ul (0.0-0.5); EOSINOPHILS % 5.6 % (0.0-7.0); HEMOGLOBIN 8.4 g/dl (12.0-16.0); LYMPHOCYTES # 1.4 10^3/ul (0.8-2.9); LYMPHOCYTES % 25.1 % (15.0-51.0); MEAN CORPUSCULAR HEMOGLOBIN 29.7 pg (29.0-33.0); MEAN CORPUSCULAR HGB CONC 32.3 g/dl (32.0-37.0); MEAN CORPUSCULAR VOLUME 91.9 fl (82.0-101.0); MEAN PLATELET VOLUME 11.1 fl (7.4-10.4); MONOCYTE # 0.6 10^3/ul (0.3-0.9); MONOCYTES % 11.5 % (0.0-11.0); NEUTROPHILS % 55.6 % (39.0-77.0); PLATELET COUNT 587 10^3/UL (140-415); RED BLOOD COUNT 2.83 10^6/ul (4.20-5.40); RED CELL DISTRIBUTION WIDTH 14.7 % (11.5-14.5)
[2018-01-11 08:26] LABS: ANION GAP 10 (8-16); BLOOD UREA NITROGEN 22 mg/dl (7-20); CALCIUM 8.3 mg/dl (8.4-10.2); CARBON DIOXIDE 36 mmol/L (21-31); CHLORIDE 98 mmol/L (97-110); CREATININE 0.91 mg/dl (0.44-1.00); GLUCOSE 211 mg/dl (70-220); POTASSIUM 3.5 mmol/L (3.5-5.1); SODIUM 140 mmol/L (135-144)
[2018-01-11] MEDS: traMADol 50 MG TAB GTB ×2 (09:09→20:32)
[2018-01-11] MEDS: MAGNESIUM OXIDE 400 MG TAB GTB ×3 (09:09→20:32)
[2018-01-11] MEDS: ZINC SULFATE 220 MG CAP GTB (09:09)
[2018-01-11] MEDS: L ACIDOPHIL/B LACTIS/B LONGUM CAPSULE PO ×2 (09:09→20:31)
[2018-01-11] MEDS: LEVETIRACETAM (100 MG/ML) 5ML CUP GTB ×2 (09:09→20:31)
[2018-01-11] MEDS: FERROUS SULFATE 60 MG/ML 5ML CUP GTB ×2 (09:09→20:31)
[2018-01-11] MEDS: ASCORBIC ACID 500 MG TAB GTB ×2 (09:09→20:32)
[2018-01-11] MEDS: OLANZAPINE 5 MG TAB PO (09:09)
[2018-01-11] MEDS: MULTIVITAMINS 30 ML CUP GTB (09:10)
[2018-01-11] MEDS: ENOXAPARIN 100 MG/ML SYG SC ×2 (09:11→20:42)
[2018-01-11] MEDS: INSULIN DETEMIR [LEVEMIR] 3ML CART SC ×2 (09:16→20:42)
[2018-01-11] MEDS: COLLAGENASE 30 GM TUBE TOP (09:23)
[2018-01-11] MEDS: FUROSEMIDE 40 MG INJ IV (09:23)
[2018-01-11] MEDS: BALSAM PERU/CASTOR OIL 60 GM TUBE TOP ×2 (09:23→20:33)
[2018-01-11] MEDS: CEFTRIAXONE 2 GM/50 ML (PMX) 50 ML IVPB (13:19)
[2018-01-12] MEDS: INSULIN ASPART [NOVOLOG] 3 ML PEN SC ×6 (01:00→20:57)
[2018-01-12] MEDS: METOCLOPRAMIDE 10 MG INJ IV ×4 (01:00→17:49)
[2018-01-12] MEDS: DEXTROSE 50% 50 ML SYRINGE IV (01:19)
[2018-01-12] MEDS: PANTOPRAZOLE 40 MG INJ IV (05:49)
[2018-01-12 08:31] LABS: ADD MAN DIFF? NO
[2018-01-12 08:34] LABS: WHITE BLOOD COUNT 7.2 10^3/ul (4.8-10.8)
[2018-01-12 08:34] LABS: BASOPHIL # 0.1 10^3/ul (0.0-0.1); BASOPHILS % 0.8 % (0.0-2.0); EOSINOPHILS # 0.1 10^3/ul (0.0-0.5); EOSINOPHILS % 1.8 % (0.0-7.0); HEMATOCRIT 26.2 % (37.0-47.0); HEMOGLOBIN 8.4 g/dl (12.0-16.0); LYMPHOCYTES # 1.1 10^3/ul (0.8-2.9); MEAN CORPUSCULAR HEMOGLOBIN 29.7 pg (29.0-33.0); MEAN CORPUSCULAR HGB CONC 32.1 g/dl (32.0-37.0); MEAN CORPUSCULAR VOLUME 92.6 fl (82.0-101.0); MONOCYTE # 0.6 10^3/ul (0.3-0.9); NEUTROPHIL # 5.2 10^3/ul (1.6-7.5); NEUTROPHILS % 72.7 % (39.0-77.0); RED BLOOD COUNT 2.83 10^6/ul (4.20-5.40); RED CELL DISTRIBUTION WIDTH 14.5 % (11.5-14.5)
[2018-01-12 08:53] LABS: PLATELET COUNT 710 10^3/UL (140-415)
[2018-01-12 08:55] LABS: ANION GAP 11 (8-16); BLOOD UREA NITROGEN 22 mg/dl (7-20); CALCIUM 8.5 mg/dl (8.4-10.2); CARBON DIOXIDE 38 mmol/L (21-31); CHLORIDE 97 mmol/L (97-110); GLUCOSE 115 mg/dl (70-220); POTASSIUM 3.4 mmol/L (3.5-5.1); SODIUM 143 mmol/L (135-144)
[2018-01-12] MEDS: L ACIDOPHIL/B LACTIS/B LONGUM CAPSULE PO ×2 (09:32→21:12)
[2018-01-12] MEDS: FERROUS SULFATE 60 MG/ML 5ML CUP GTB ×2 (09:33→21:11)
[2018-01-12] MEDS: ASCORBIC ACID 500 MG TAB GTB ×2 (09:33→21:13)
[2018-01-12] MEDS: FUROSEMIDE 40 MG INJ IV (09:33)
[2018-01-12] MEDS: MAGNESIUM OXIDE 400 MG TAB GTB ×3 (09:33→21:13)
[2018-01-12] MEDS: LEVETIRACETAM (100 MG/ML) 5ML CUP GTB ×2 (09:33→21:11)
[2018-01-12] MEDS: OLANZAPINE 5 MG TAB PO (09:33)
[2018-01-12] MEDS: MULTIVITAMINS 30 ML CUP GTB (09:33)
[2018-01-12] MEDS: traMADol 50 MG TAB GTB ×2 (09:33→21:12)
[2018-01-12] MEDS: ZINC SULFATE 220 MG CAP GTB (09:33)
[2018-01-12] MEDS: ENOXAPARIN 100 MG/ML SYG SC ×2 (09:40→21:17)
[2018-01-12] MEDS: COLLAGENASE 30 GM TUBE TOP (09:42)
[2018-01-12] MEDS: BALSAM PERU/CASTOR OIL 60 GM TUBE TOP ×2 (09:42→21:13)
[2018-01-12] MEDS: CEFTRIAXONE 2 GM/50 ML (PMX) 50 ML IVPB (13:28)
[2018-01-12] MEDS: INSULIN DETEMIR [LEVEMIR] 3ML CART SC (20:56)
[2018-01-13] MEDS: METOCLOPRAMIDE 10 MG INJ IV ×4 (00:41→17:17)
[2018-01-13] MEDS: INSULIN ASPART [NOVOLOG] 3 ML PEN SC ×6 (00:51→22:15)
[2018-01-13] MEDS: PANTOPRAZOLE 40 MG INJ IV (05:44)
[2018-01-13 08:41] LABS: WHITE BLOOD COUNT 4.7 10^3/ul (4.8-10.8)
[2018-01-13 08:41] LABS: HEMATOCRIT 24.6 % (37.0-47.0); MEAN CORPUSCULAR HGB CONC 32.5 g/dl (32.0-37.0); MEAN CORPUSCULAR VOLUME 92.1 fl (82.0-101.0); MEAN PLATELET VOLUME 11.1 fl (7.4-10.4); PLATELET COUNT 701 10^3/UL (140-415); RED BLOOD COUNT 2.67 10^6/ul (4.20-5.40); RED CELL DISTRIBUTION WIDTH 14.6 % (11.5-14.5)
[2018-01-13 08:54] LABS: ADD MAN DIFF? YES; POSITIVE DIFF @See below
[2018-01-13] MEDS: FUROSEMIDE 40 MG INJ IV (09:05)
[2018-01-13] MEDS: OLANZAPINE 5 MG TAB PO (09:05)
[2018-01-13] MEDS: ASCORBIC ACID 500 MG TAB GTB ×2 (09:05→22:12)
[2018-01-13] MEDS: MAGNESIUM OXIDE 400 MG TAB GTB ×3 (09:05→22:12)
[2018-01-13 09:06] LABS: ANION GAP 8 (8-16); BLOOD UREA NITROGEN 27 mg/dl (7-20); CALCIUM 8.5 mg/dl (8.4-10.2); CARBON DIOXIDE 40 mmol/L (21-31); CHLORIDE 96 mmol/L (97-110); CREATININE 0.93 mg/dl (0.44-1.00); GLUCOSE 171 mg/dl (70-220); POTASSIUM 3.5 mmol/L (3.5-5.1); SODIUM 140 mmol/L (135-144)
[2018-01-13] MEDS: ZINC SULFATE 220 MG CAP GTB (09:06)
[2018-01-13] MEDS: L ACIDOPHIL/B LACTIS/B LONGUM CAPSULE PO ×2 (09:06→22:12)
[2018-01-13] MEDS: traMADol 50 MG TAB GTB ×2 (09:06→22:12)
[2018-01-13] MEDS: LEVETIRACETAM (100 MG/ML) 5ML CUP GTB ×2 (09:06→22:12)
[2018-01-13] MEDS: MULTIVITAMINS 30 ML CUP GTB (09:06)
[2018-01-13] MEDS: FERROUS SULFATE 60 MG/ML 5ML CUP GTB ×2 (09:07→22:11)
[2018-01-13] MEDS: ENOXAPARIN 100 MG/ML SYG SC ×2 (09:09→22:16)
[2018-01-13] MEDS: INSULIN DETEMIR [LEVEMIR] 3ML CART SC ×2 (09:09→22:14)
[2018-01-13] MEDS: COLLAGENASE 30 GM TUBE TOP (09:10)
[2018-01-13] MEDS: BALSAM PERU/CASTOR OIL 60 GM TUBE TOP ×2 (09:10→21:00)
[2018-01-13 09:50] LABS: BAND NEUTROPHILS #M 0.1 10^3/ul (0.0-0.6); BAND NEUTROPHILS % (M) 3 % (0-4); EOSINOPHILS % (M) 5 % (0-7); HYPOCHROMASIA 2+ (0-0); LYMPHOCYTES #M 1.9 10^3/ul (0.8-2.9); LYMPHOCYTES % (M) 42 % (15-51); MONOCYTE #M 0.5 10^3/ul (0.3-0.9); MONOCYTES % (M) 12 % (0-11); MYELOCYTES % (M) 1 % (0-0); PLATELET ESTIMATE INCREASED; POLYCHROMASIA 3+ (0-0); SEG NEUT #M 1.7 10^3/ul (1.6-7.5); SEGMENTED NEUTROPHILS (M) % 37 % (39-77); SMUDGE%M 8 % (0-0)
[2018-01-13] MEDS: CEFTRIAXONE 2 GM/50 ML (PMX) 50 ML IVPB (13:53)
[2018-01-14] MEDS: METOCLOPRAMIDE 10 MG INJ IV ×4 (01:38→17:29)
[2018-01-14] MEDS: INSULIN ASPART [NOVOLOG] 3 ML PEN SC ×6 (01:40→21:00)
[2018-01-14] MEDS: PANTOPRAZOLE 40 MG INJ IV (05:50)
[2018-01-14] MEDS: FUROSEMIDE 40 MG INJ IV (08:50)
[2018-01-14] MEDS: FERROUS SULFATE 60 MG/ML 5ML CUP GTB ×2 (08:50→21:16)
[2018-01-14] MEDS: OLANZAPINE 5 MG TAB PO (08:51)
[2018-01-14] MEDS: L ACIDOPHIL/B LACTIS/B LONGUM CAPSULE PO ×2 (08:51→21:16)
[2018-01-14] MEDS: MULTIVITAMINS 30 ML CUP GTB (08:51)
[2018-01-14] MEDS: LEVETIRACETAM (100 MG/ML) 5ML CUP GTB ×2 (08:51→21:23)
[2018-01-14] MEDS: ENOXAPARIN 100 MG/ML SYG SC ×2 (08:52→21:19)
[2018-01-14] MEDS: INSULIN DETEMIR [LEVEMIR] 3ML CART SC ×2 (08:53→20:00)
[2018-01-14] MEDS: MAGNESIUM OXIDE 400 MG TAB GTB ×3 (08:54→21:23)
[2018-01-14] MEDS: ASCORBIC ACID 500 MG TAB GTB ×2 (08:54→21:16)
[2018-01-14] MEDS: traMADol 50 MG TAB GTB ×2 (08:54→21:16)
[2018-01-14] MEDS: ZINC SULFATE 220 MG CAP GTB (08:54)
[2018-01-14] MEDS: COLLAGENASE 30 GM TUBE TOP (08:55)
[2018-01-14] MEDS: BALSAM PERU/CASTOR OIL 60 GM TUBE TOP ×2 (08:55→21:23)
[2018-01-14 09:20] LABS: ADD MAN DIFF? NO
[2018-01-14 09:25] LABS: WHITE BLOOD COUNT 5.6 10^3/ul (4.8-10.8)
[2018-01-14 09:25] LABS: BASOPHIL # 0.1 10^3/ul (0.0-0.1); BASOPHILS % 1.3 % (0.0-2.0); EOSINOPHILS # 0.2 10^3/ul (0.0-0.5); EOSINOPHILS % 3.2 % (0.0-7.0); HEMATOCRIT 25.8 % (37.0-47.0); HEMOGLOBIN 8.3 g/dl (12.0-16.0); LYMPHOCYTES # 1.8 10^3/ul (0.8-2.9); LYMPHOCYTES % 32.9 % (15.0-51.0); MEAN CORPUSCULAR HEMOGLOBIN 29.7 pg (29.0-33.0); MEAN CORPUSCULAR HGB CONC 32.2 g/dl (32.0-37.0); MEAN CORPUSCULAR VOLUME 92.5 fl (82.0-101.0); MEAN PLATELET VOLUME 10.9 fl (7.4-10.4); MONOCYTE # 0.5 10^3/ul (0.3-0.9); MONOCYTES % 9.2 % (0.0-11.0); NEUTROPHIL # 2.9 10^3/ul (1.6-7.5); NEUTROPHILS % 52.7 % (39.0-77.0); PLATELET COUNT 755 10^3/UL (140-415); RED BLOOD COUNT 2.79 10^6/ul (4.20-5.40); RED CELL DISTRIBUTION WIDTH 14.7 % (11.5-14.5)
[2018-01-14 09:55] LABS: ANION GAP 9 (8-16); BLOOD UREA NITROGEN 25 mg/dl (7-20); CALCIUM 8.7 mg/dl (8.4-10.2); CHLORIDE 95 mmol/L (97-110); CREATININE 0.95 mg/dl (0.44-1.00); GLUCOSE 159 mg/dl (70-220); POTASSIUM 3.6 mmol/L (3.5-5.1); SODIUM 140 mmol/L (135-144)
[2018-01-14 10:31] LABS: CARBON DIOXIDE 37 mmol/L (21-31)
[2018-01-14] MEDS: CEFTRIAXONE 2 GM/50 ML (PMX) 50 ML IVPB (13:31)
[2018-01-15] MEDS: INSULIN ASPART [NOVOLOG] 3 ML PEN SC ×6 (00:53→21:05)
[2018-01-15] MEDS: METOCLOPRAMIDE 10 MG INJ IV ×4 (01:02→17:34)
[2018-01-15] MEDS: PANTOPRAZOLE 40 MG INJ IV (05:35)
[2018-01-15 07:11] LABS: ADD MAN DIFF? NO
[2018-01-15 07:16] LABS: BASOPHIL # 0.1 10^3/ul (0.0-0.1); BASOPHILS % 1.4 % (0.0-2.0); EOSINOPHILS # 0.1 10^3/ul (0.0-0.5); EOSINOPHILS % 1.1 % (0.0-7.0); HEMATOCRIT 27.6 % (37.0-47.0); HEMOGLOBIN 8.8 g/dl (12.0-16.0); LYMPHOCYTES # 1.2 10^3/ul (0.8-2.9); LYMPHOCYTES % 17.7 % (15.0-51.0); MEAN CORPUSCULAR HEMOGLOBIN 29.5 pg (29.0-33.0); MEAN CORPUSCULAR HGB CONC 31.9 g/dl (32.0-37.0); MEAN CORPUSCULAR VOLUME 92.6 fl (82.0-101.0); MEAN PLATELET VOLUME 10.9 fl (7.4-10.4); MONOCYTE # 0.5 10^3/ul (0.3-0.9); MONOCYTES % 6.9 % (0.0-11.0); NEUTROPHILS % 72.2 % (39.0-77.0); PLATELET COUNT 807 10^3/UL (140-415); RED BLOOD COUNT 2.98 10^6/ul (4.20-5.40); RED CELL DISTRIBUTION WIDTH 14.5 % (11.5-14.5)
[2018-01-15 07:37] LABS: ANION GAP 17 (8-16); BLOOD UREA NITROGEN 24 mg/dl (7-20); CALCIUM 9.1 mg/dl (8.4-10.2); CARBON DIOXIDE 34 mmol/L (21-31); CHLORIDE 92 mmol/L (97-110); CREATININE 0.89 mg/dl (0.44-1.00); GLUCOSE 371 mg/dl (70-220); POTASSIUM 3.9 mmol/L (3.5-5.1); SODIUM 139 mmol/L (135-144)
[2018-01-15] MEDS: OLANZAPINE 5 MG TAB PO (08:26)
[2018-01-15] MEDS: MAGNESIUM OXIDE 400 MG TAB GTB ×3 (08:26→20:59)
[2018-01-15] MEDS: ZINC SULFATE 220 MG CAP GTB (08:26)
[2018-01-15] MEDS: ASCORBIC ACID 500 MG TAB GTB ×2 (08:26→20:59)
[2018-01-15] MEDS: FERROUS SULFATE 60 MG/ML 5ML CUP GTB ×2 (08:27→20:59)
[2018-01-15] MEDS: LEVETIRACETAM (100 MG/ML) 5ML CUP GTB ×2 (08:27→20:58)
[2018-01-15] MEDS: traMADol 50 MG TAB GTB ×2 (08:27→20:59)
[2018-01-15] MEDS: FUROSEMIDE 40 MG INJ IV (08:28)
[2018-01-15] MEDS: MULTIVITAMINS 30 ML CUP GTB (08:28)
[2018-01-15] MEDS: ENOXAPARIN 100 MG/ML SYG SC ×2 (08:29→21:00)
[2018-01-15] MEDS: INSULIN DETEMIR [LEVEMIR] 3ML CART SC ×2 (08:32→20:58)
[2018-01-15] MEDS: BALSAM PERU/CASTOR OIL 60 GM TUBE TOP ×2 (08:33→21:05)
[2018-01-15] MEDS: COLLAGENASE 30 GM TUBE TOP (08:33)
[2018-01-15] MEDS: L ACIDOPHIL/B LACTIS/B LONGUM CAPSULE PO ×2 (09:17→20:59)
[2018-01-15] MEDS: CEFTRIAXONE 2 GM/50 ML (PMX) 50 ML IVPB (14:14)
[2018-01-16] MEDS: METOCLOPRAMIDE 10 MG INJ IV ×4 (00:24→17:39)
[2018-01-16] MEDS: INSULIN ASPART [NOVOLOG] 3 ML PEN SC ×6 (02:09→20:52)
[2018-01-16] MEDS: PANTOPRAZOLE 40 MG INJ IV (06:01)
[2018-01-16 07:20] LABS: ADD MAN DIFF? NO
[2018-01-16 07:29] LABS: WHITE BLOOD COUNT 6.6 10^3/ul (4.8-10.8)
[2018-01-16 07:29] LABS: BASOPHIL # 0.1 10^3/ul (0.0-0.1); BASOPHILS % 1.7 % (0.0-2.0); EOSINOPHILS # 0.2 10^3/ul (0.0-0.5); EOSINOPHILS % 3.3 % (0.0-7.0); HEMATOCRIT 27.3 % (37.0-47.0); HEMOGLOBIN 8.7 g/dl (12.0-16.0); LYMPHOCYTES # 2.6 10^3/ul (0.8-2.9); LYMPHOCYTES % 39.9 % (15.0-51.0); MEAN CORPUSCULAR HEMOGLOBIN 29.5 pg (29.0-33.0); MEAN CORPUSCULAR HGB CONC 31.9 g/dl (32.0-37.0); MEAN CORPUSCULAR VOLUME 92.5 fl (82.0-101.0); MEAN PLATELET VOLUME 10.9 fl (7.4-10.4); MONOCYTE # 0.6 10^3/ul (0.3-0.9); MONOCYTES % 8.6 % (0.0-11.0); NEUTROPHILS % 45.9 % (39.0-77.0); RED BLOOD COUNT 2.95 10^6/ul (4.20-5.40); RED CELL DISTRIBUTION WIDTH 14.6 % (11.5-14.5)
[2018-01-16 07:36] LABS: PLATELET COUNT 759 10^3/UL (140-415)
[2018-01-16 07:42] LABS: BLOOD UREA NITROGEN 30 mg/dl (7-20); CALCIUM 9.1 mg/dl (8.4-10.2); CHLORIDE 92 mmol/L (97-110); CREATININE 0.88 mg/dl (0.44-1.00); GLUCOSE 125 mg/dl (70-220); POTASSIUM 3.5 mmol/L (3.5-5.1); SODIUM 142 mmol/L (135-144)
[2018-01-16 07:54] LABS: ANION GAP 14 (8-16)
[2018-01-16 07:58] LABS: CARBON DIOXIDE 40 mmol/L (21-31)
[2018-01-16] MEDS: INSULIN DETEMIR [LEVEMIR] 3ML CART SC ×2 (08:23→20:51)
[2018-01-16] MEDS: FERROUS SULFATE 60 MG/ML 5ML CUP GTB ×2 (08:23→20:49)
[2018-01-16] MEDS: ZINC SULFATE 220 MG CAP GTB (08:24)
[2018-01-16] MEDS: MAGNESIUM OXIDE 400 MG TAB GTB ×3 (08:24→20:50)
[2018-01-16] MEDS: ASCORBIC ACID 500 MG TAB GTB ×2 (08:24→20:49)
[2018-01-16] MEDS: MULTIVITAMINS 30 ML CUP GTB (08:24)
[2018-01-16] MEDS: traMADol 50 MG TAB GTB ×2 (08:24→20:50)
[2018-01-16] MEDS: FUROSEMIDE 40 MG INJ IV (08:33)
[2018-01-16] MEDS: LEVETIRACETAM (100 MG/ML) 5ML CUP GTB ×2 (08:42→20:49)
[2018-01-16] MEDS: L ACIDOPHIL/B LACTIS/B LONGUM CAPSULE PO ×2 (08:42→20:50)
[2018-01-16] MEDS: ENOXAPARIN 100 MG/ML SYG SC ×2 (08:43→20:52)
[2018-01-16] MEDS: BALSAM PERU/CASTOR OIL 60 GM TUBE TOP ×2 (08:44→21:03)
[2018-01-16] MEDS: COLLAGENASE 30 GM TUBE TOP (08:44)
[2018-01-16] MEDS: OLANZAPINE 5 MG TAB PO (09:36)
[2018-01-16] MEDS: CEFTRIAXONE 2 GM/50 ML (PMX) 50 ML IVPB (14:39)
[2018-01-16] MEDS: DEXTROSE 50% 50 ML SYRINGE IV (17:39)
[2018-01-17] MEDS: METOCLOPRAMIDE 10 MG INJ IV ×4 (00:12→17:59)
[2018-01-17] MEDS: INSULIN ASPART [NOVOLOG] 3 ML PEN SC ×6 (01:00→20:36)
[2018-01-17] MEDS: PANTOPRAZOLE 40 MG INJ IV (05:53)
[2018-01-17] MEDS: DEXTROSE 50% 50 ML SYRINGE IV (05:53)
[2018-01-17] MEDS: INSULIN DETEMIR [LEVEMIR] 3ML CART SC ×2 (08:01→20:34)
[2018-01-17] MEDS: L ACIDOPHIL/B LACTIS/B LONGUM CAPSULE PO ×2 (08:03→20:38)
[2018-01-17] MEDS: ASCORBIC ACID 500 MG TAB GTB ×2 (08:04→20:39)
[2018-01-17] MEDS: ZINC SULFATE 220 MG CAP GTB (08:04)
[2018-01-17] MEDS: MAGNESIUM OXIDE 400 MG TAB GTB ×3 (08:04→20:39)
[2018-01-17] MEDS: traMADol 50 MG TAB GTB ×2 (08:04→20:40)
[2018-01-17] MEDS: OLANZAPINE 5 MG TAB PO (08:04)
[2018-01-17] MEDS: FERROUS SULFATE 60 MG/ML 5ML CUP GTB ×2 (08:05→20:38)
[2018-01-17] MEDS: MULTIVITAMINS 30 ML CUP GTB (08:05)
[2018-01-17] MEDS: LEVETIRACETAM (100 MG/ML) 5ML CUP GTB ×2 (08:05→20:38)
[2018-01-17] MEDS: FUROSEMIDE 40 MG INJ IV (08:29)
[2018-01-17] MEDS: ENOXAPARIN 100 MG/ML SYG SC ×2 (08:30→20:38)
[2018-01-17] MEDS: BALSAM PERU/CASTOR OIL 60 GM TUBE TOP ×2 (08:31→21:13)
[2018-01-17] MEDS: COLLAGENASE 30 GM TUBE TOP (08:32)
[2018-01-17] MEDS: CEFTRIAXONE 2 GM/50 ML (PMX) 50 ML IVPB (14:24)
[2018-01-17] MEDS ORDERED: INSULIN DETEMIR [LEVEMIR] 3ML CART SC (20:00)
[2018-01-18] MEDS: METOCLOPRAMIDE 10 MG INJ IV ×4 (00:27→17:14)
[2018-01-18] MEDS: INSULIN ASPART [NOVOLOG] 3 ML PEN SC ×8 (01:00→21:36)
[2018-01-18] MEDS: DEXTROSE 50% 50 ML SYRINGE IV ×2 (05:29→17:16)
[2018-01-18] MEDS: PANTOPRAZOLE 40 MG INJ IV (05:30)
[2018-01-18 08:28] LABS: ADD MAN DIFF? NO
[2018-01-18] MEDS: L ACIDOPHIL/B LACTIS/B LONGUM CAPSULE PO ×2 (08:31→21:36)
[2018-01-18] MEDS: MULTIVITAMINS 30 ML CUP GTB (08:32)
[2018-01-18] MEDS: traMADol 50 MG TAB GTB ×2 (08:32→21:29)
[2018-01-18] MEDS: FERROUS SULFATE 60 MG/ML 5ML CUP GTB ×2 (08:32→21:29)
[2018-01-18] MEDS: MAGNESIUM OXIDE 400 MG TAB GTB ×3 (08:32→21:36)
[2018-01-18] MEDS: LEVETIRACETAM (100 MG/ML) 5ML CUP GTB ×2 (08:32→21:29)
[2018-01-18 08:33] LABS: BASOPHIL # 0.1 10^3/ul (0.0-0.1); BASOPHILS % 1.4 % (0.0-2.0); EOSINOPHILS # 0.2 10^3/ul (0.0-0.5); EOSINOPHILS % 2.7 % (0.0-7.0); HEMATOCRIT 27.8 % (37.0-47.0); HEMOGLOBIN 8.9 g/dl (12.0-16.0); LYMPHOCYTES # 2.2 10^3/ul (0.8-2.9); LYMPHOCYTES % 31.4 % (15.0-51.0); MEAN CORPUSCULAR HEMOGLOBIN 29.4 pg (29.0-33.0); MEAN CORPUSCULAR VOLUME 91.7 fl (82.0-101.0); MEAN PLATELET VOLUME 11.2 fl (7.4-10.4); MONOCYTE # 0.6 10^3/ul (0.3-0.9); MONOCYTES % 8.4 % (0.0-11.0); NEUTROPHIL # 3.9 10^3/ul (1.6-7.5); NEUTROPHILS % 55.7 % (39.0-77.0); PLATELET COUNT 603 10^3/UL (140-415); RED BLOOD COUNT 3.03 10^6/ul (4.20-5.40); RED CELL DISTRIBUTION WIDTH 14.6 % (11.5-14.5)
[2018-01-18 08:33] LABS: WHITE BLOOD COUNT 6.9 10^3/ul (4.8-10.8)
[2018-01-18] MEDS: FUROSEMIDE 40 MG INJ IV (08:33)
[2018-01-18] MEDS: ZINC SULFATE 220 MG CAP GTB (08:33)
[2018-01-18] MEDS: ASCORBIC ACID 500 MG TAB GTB ×2 (08:33→21:29)
[2018-01-18] MEDS: OLANZAPINE 5 MG TAB PO (08:33)
[2018-01-18] MEDS: INSULIN DETEMIR [LEVEMIR] 3ML CART SC ×2 (08:36→21:32)
[2018-01-18] MEDS: COLLAGENASE 30 GM TUBE TOP (08:37)
[2018-01-18] MEDS: BALSAM PERU/CASTOR OIL 60 GM TUBE TOP ×2 (08:37→21:48)
[2018-01-18] MEDS: ENOXAPARIN 100 MG/ML SYG SC ×2 (08:38→21:31)
[2018-01-18 08:51] LABS: ANION GAP 14 (8-16); BLOOD UREA NITROGEN 26 mg/dl (7-20); CALCIUM 9.4 mg/dl (8.4-10.2); CARBON DIOXIDE 36 mmol/L (21-31); CHLORIDE 91 mmol/L (97-110); CREATININE 0.81 mg/dl (0.44-1.00); GLUCOSE 191 mg/dl (70-220); POTASSIUM 3.7 mmol/L (3.5-5.1); SODIUM 137 mmol/L (135-144)
[2018-01-19] MEDS: INSULIN ASPART [NOVOLOG] 3 ML PEN SC ×4 (01:00→12:24)
[2018-01-19] MEDS: METOCLOPRAMIDE 10 MG INJ IV ×3 (01:02→12:25)
[2018-01-19] MEDS: PANTOPRAZOLE 40 MG INJ IV (04:59)
[2018-01-19] MEDS: INSULIN DETEMIR [LEVEMIR] 3ML CART SC (08:45)
[2018-01-19] MEDS: ENOXAPARIN 100 MG/ML SYG SC (08:46)
[2018-01-19] MEDS: traMADol 50 MG TAB GTB (08:47)
[2018-01-19] MEDS: OLANZAPINE 5 MG TAB PO (08:47)
[2018-01-19] MEDS: ASCORBIC ACID 500 MG TAB GTB (08:47)
[2018-01-19] MEDS: L ACIDOPHIL/B LACTIS/B LONGUM CAPSULE PO (08:47)
[2018-01-19] MEDS: ZINC SULFATE 220 MG CAP GTB (08:47)
[2018-01-19] MEDS: LEVETIRACETAM (100 MG/ML) 5ML CUP GTB (08:48)
[2018-01-19] MEDS: MAGNESIUM OXIDE 400 MG TAB GTB ×2 (08:48→12:27)
[2018-01-19] MEDS: MULTIVITAMINS 30 ML CUP GTB (08:48)
[2018-01-19] MEDS: FERROUS SULFATE 60 MG/ML 5ML CUP GTB (08:48)
[2018-01-19] MEDS: COLLAGENASE 30 GM TUBE TOP (08:49)
[2018-01-19] MEDS: BALSAM PERU/CASTOR OIL 60 GM TUBE TOP (08:49)
[2018-01-19] MEDS: FUROSEMIDE 40 MG INJ IV (08:49)
== END 2018-01-19 17:34 | DRG 870 ==
LOC: MS4 09:53 → ICU 01-02 18:51 → REC 01-09 10:15 → E/R 09:46 → MS4 01-09 18:59
PROC: 0DB68ZX Excision of Stomach, Via Natural or Artificial Opening Endoscopic, Diagnostic (ICD-10-PCS; 2018-01-07 17:00)
PROC: 0DB78ZX Excision of Stomach, Pylorus, Via Natural or Artificial Opening Endoscopic, Diagnostic (ICD-10-PCS; 2018-01-07 17:00)
PROC: 5A1955Z Respiratory Ventilation, Greater than 96 Consecutive Hours (ICD-10-PCS; principal; 2018-01-07 18:16)
PROC: 0BH17EZ Insertion of Endotracheal Airway into Trachea, Via Natural or Artificial Opening (ICD-10-PCS; 2018-01-07 18:16)
PROC: 02HV33Z Insertion of Infusion Device into Superior Vena Cava, Percutaneous Approach (ICD-10-PCS; 2018-01-07 18:16)
PROC: 4A133R1 Monitoring of Arterial Saturation, Peripheral, Percutaneous Approach (ICD-10-PCS; 2018-01-07 18:16)
DX: A41.59 Other Gram-negative sepsis (principal); J96.01 Acute respiratory failure with hypoxia; R65.21 Severe sepsis with septic shock; G92 Toxic encephalopathy; J69.0 Pneumonitis due to inhalation of food and vomit; E87.3 Alkalosis; L89.154 Pressure ulcer of sacral region, stage 4; L89.621 Pressure ulcer of left heel, stage 1; E87.0 Hyperosmolality and hypernatremia; I82.611 Acute embolism and thrombosis of superficial veins of right upper extremity; E10.10 Type 1 diabetes mellitus with ketoacidosis without coma; R13.10 Dysphagia, unspecified; N30.91 Cystitis, unspecified with hematuria; F20.9 Schizophrenia, unspecified; F31.9 Bipolar disorder, unspecified; E87.6 Hypokalemia; I25.10 Atherosclerotic heart disease of native coronary artery without angina pectoris; I10 Essential (primary) hypertension; F03.90 Unspecified dementia, unspecified severity, without behavioral disturbance, psychotic disturbance, mood disturbance, and anxiety; D50.9 Iron deficiency anemia, unspecified; E78.5 Hyperlipidemia, unspecified; G40.909 Epilepsy, unspecified, not intractable, without status epilepticus; B96.4 Proteus (mirabilis) (morganii) as the cause of diseases classified elsewhere; D56.9 Thalassemia, unspecified; E86.0 Dehydration; L89.619 Pressure ulcer of right heel, unspecified stage; E83.42 Hypomagnesemia; D47.3 Essential (hemorrhagic) thrombocythemia; K29.50 Unspecified chronic gastritis without bleeding; K94.29 Other complications of gastrostomy; Z79.82 Long term (current) use of aspirin; Z98.1 Arthrodesis status; Z96.642 Presence of left artificial hip joint; Z86.73 Personal history of transient ischemic attack (TIA), and cerebral infarction without residual deficits; Z74.01 Bed confinement status; Z22.322 Carrier or suspected carrier of Methicillin resistant Staphylococcus aureus; Z86.718 Personal history of other venous thrombosis and embolism; Y83.3 Surgical operation with formation of external stoma as the cause of abnormal reaction of the patient, or of later complication, without mention of misadventure at the time of the procedure
CPT/HCPCS: 31500; 36415; 36569; 36600; 70450; 71045; 74018; 80048; 80053; 80069; 80202; 81001; 82150; 82607; 82728; 82803; 82962; 83036; 83540; 83605; 83690; 83735; 84100; 84145; 84484; 85025; 85610; 85730; 87040; 87045; 87070; 87081; 87086; 88305; 88312; 89220; 93005; 93970; 94002; 94003; 94664; 94770; 96365; 96366; 96375; 96376; 99291-25; J1940